=== PATIENT | male | born 1970 | race Caucasian/White ===

== ENCOUNTER 2019-12-26 15:35 | Inpatient (IN) | payer MEDICARE, MEDICAID ==
[~2019-12-26] VITALS: Ht 182.9 cm; Wt 122.5 kg
[2019-12-26] MEDS ORDERED: BENA25CA4 PO (16:15)
[2019-12-26] MEDS ORDERED: HALO20TA PO ×2 (16:17)
[2019-12-26] MEDS ORDERED: IBUP-1022 PO (16:17)
[2019-12-26] MEDS ORDERED: LEVO25TA5 PO (16:18)
[2019-12-26] MEDS ORDERED: AMBI10TA PO (16:19)
[2019-12-26] MEDS ORDERED: METF-882 PO (16:19)
[2019-12-26] MEDS: metFORMIN XR 500MG TAB *GLUCOPHAGE XR PO SCH (18:00)
[2019-12-26] MEDS ORDERED: MOM 30ML SUSPENSION UDC PO PRN (18:30)
[2019-12-26] MEDS ORDERED: MAALOX 30 ML SUSP *UDC PO PRN (18:30)
[2019-12-26] MEDS ORDERED: traZODone 50 MG TAB PO PRN (18:30)
[2019-12-26] MEDS ORDERED: ACETAMINOPHEN TAB 650MG DOSE (2X325MG) PO PRN (18:30)
[2019-12-26] MEDS ORDERED: LOSA25TA14 PO (18:50)
[2019-12-26] MEDS ORDERED: ARIP1TAB10 PO (18:50)
[2019-12-26] MEDS ORDERED: METF-838 PO (18:50)
[2019-12-26] MEDS ORDERED: PROP10TA56 PO (18:50)
[2019-12-26] MEDS ORDERED: ATOR1TAB21 PO (18:50)
[2019-12-26] MEDS ORDERED: DIPH50CA PO (18:50)
[2019-12-26 20:29] LABS: APPEARANCE, URINE CLEAR (CLEAR); BACTERIA, URINE AUTO NEGATIVE (NEGATIVE); BILIRUBIN, URINE AUTO NEGATIVE (NEGATIVE); BLOOD, URINE BLOOD 3+ (NEGATIVE); COLOR, URINE YELLOW (YELLOW); GLUCOSE, URINE (UA) AUTO NEGATIVE (NEGATIVE); KETONE, URINE AUTO NEGATIVE (NEGATIVE); LEUKOCYTE ESTERASE, URINE AUTO NEGATIVE (NEGATIVE); MUCUS, URINE SMALL (NEGATIVE); NITRITE, URINE AUTO NEGATIVE (NEGATIVE); PROTEIN, URINE AUTO NEGATIVE (NEGATIVE); RBC, URINE AUTO 11 /HPF (0-3); SQUAMOUS EPITHELIAL CELL UR AU 0 /HPF (0-6); UROBILINOGEN, URINE AUTO 0.2 mg/dL (0.0-2.0); WBC, URINE AUTO 1 /HPF (0-3)
[2019-12-26] MEDS: ARIPiprazole 15 MG TAB (AbiLIFY) PO SCH (21:00)
[2019-12-26] MEDS: PROPRANOLOL 10 MG TAB PO SCH (21:00)
[2019-12-26 22:59] VITALS: BP 142/78
[2019-12-27] MEDS: LEVOTHYROXINE 25MCG TABLET (0.025MG) PO SCH (06:24)
[2019-12-27 06:40] VITALS: BP 138/88
[2019-12-27] MEDS: metFORMIN XR 500MG TAB *GLUCOPHAGE XR PO SCH ×2 (07:04→17:03)
[2019-12-27] MEDS: IBUPROFEN 600MG TAB PO PRN (07:34)
[2019-12-27] MEDS: ARIPiprazole 15 MG TAB (AbiLIFY) PO SCH ×2 (09:46→22:07)
[2019-12-27] MEDS: LOSARTAN 25 MG TAB PO SCH (09:51)
[2019-12-27] MEDS: ATORVASTATIN 20 MG TAB PO SCH (09:52)
[2019-12-27] MEDS: PROPRANOLOL 10 MG TAB PO SCH ×3 (09:52→22:08)
[2019-12-27 16:17] VITALS: BP 148/98
--- NOTE | 2019-12-27 20:09 | HPEPDOC ---
[facility] Medical History & Physical Date of Admission Dec 27, 2019 Date of Service: Dec 27, 2019 Primary Care Physician: A Attending Physician: MYRIAM CANTU MD History and Physical CHIEF COMPLAINT: Medical intake admission by hospitalist service. C/o recent L inguinal pain which has since resolved. HISTORY OF PRESENT ILLNESS: 49 yo with a hx of HTN, hypothyroidism, DM2, admitted to [facility]. Hospitalist service consulted for medical intake. PAST MEDICAL HISTORY: 1. HTN 2. DM2 3. Hypothyroidism 4. Schizophrenia PAST SURGICAL HISTORY: Non contibutory SOCIAL HISTORY: denies smoking, eto use FAMILY HISTORY: denies ALLERGIES: Please see below. REVIEW OF SYSTEMS: CONSTITUTIONAL: na. HEENT: na. CARDIOVASCULAR: na. RESPIRATORY: na. GASTROINTESTINAL: na. GENITOURINARY: na. C/o L inguinal pain which has resolved. SKIN: na. MUSCULOSKELETAL: na. NEUROLOGICAL: na. PSYCHIATRIC: na. ENDOCRINE: na. HEMATOLOGIC/LYMPHATIC: na. HOME MEDICATIONS: Please see below. PHYSICAL EXAMINATION: VITAL SIGNS: please see below GENERAL APPEARANCE: NAD, comfortable standing. HEENT: PERRLA. CARDIOVASCULAR: RRR, normal S1, S2. LUNGS: CTAB. ABDOMEN: obese abdomen, BS+, no pain to palpation. L inguinal area shows no swelling or masses on bearing down. No overlying skin changes. MUSCULOSKELETAL: normal ROM. EXTREMITIES: no edema. NEUROLOGICAL: no focal neuro deficits. PSYCHIATRIC: calm, cooperative. MICROBIOLOGY: Please see below. ASSESSMENT: 49 yo with a hx of HTN, hypothyroidism, DM2, admitted to [facility]. Hospitalist service consulted for medical intake. PLAN: 1. L inguinal pain: resolved. No hernia, MSK issues identified. Monitor 2. Hematuria on UA (12/25). Denies hx of trauma. Repeat UA. Outpatient urology follow up recommended for cystoscopy if hematuria persists. 3. HTN: c/w home meds losartan 25 mg daily, propranolol 10 mg TID 4. hypothyroid: c/w home meds 25 mcg daily 5. constipation: bowel regimen 6. DM2: metformin. OK to continue if IV contrast imaging not planned. 7. Schizophrenia: per psychiatry Thank you for the consult. Please re-consult as needed. Vital Signs Vital Signs Date Time Temp Pulse Resp B/P (MAP) Pulse Ox O2 Delivery O2 Flow Rate FiO2 12/27/19 16:17 97.1 68 20 148/98 (115) 12/27/19 07:43 Room Air 12/26/19 22:59 95 Laboratory Data Labs 24H Laboratory Tests 2 12/26/19 20:04: Urine Color YELLOW, Urine Appearance CLEAR, Urine pH 6.0, Urine Specific [place] 1.010, Urine Protein NEGATIVE, Urine Glucose (Auto)(UA) NEGATIVE, Urine Ketones (Auto) NEGATIVE, Urine Blood 3+H, Urine Nitrite NEGATIVE, Urine Bilirubin NEGATIVE, Urine Urobilinogen 0.2, Urine Leukocyte Esterase (Auto) NEGATIVE, Urine WBC (Auto) 1, Urine RBC (Auto) 11H, Urine Hyaline Casts (Auto) 0, Urine Bacteria (Auto) NEGATIVE, Urine Squamous Epithelial Cells 0, Urine Mucus (Auto) SMALL, Urine Sperm (Auto) Home Medications Scheduled Aripiprazole (Aripiprazole) 15 Mg Tablet, 15 MG PO BID Atorvastatin Calcium (Atorvastatin Calcium) 20 Mg Tablet, 20 MG PO DAILY Haloperidol (Haloperidol) 20 Mg Tablet, 20 MG PO QHS Levothyroxine Sodium (Levothyroxine Sodium) 25 Mcg Tablet, 25 MCG PO DAILY Losartan Potassium (Losartan Potassium) 25 Mg Tablet, 25 MG PO DAILY Metformin HCl (Metformin HCl ER) 500 Mg Tab.er.24h, 500 MG PO BID Propranolol HCl (Propranolol HCl) 10 Mg Tablet, 10 MG PO TID Scheduled PRN Diphenhydramine HCl (Diphenhydramine HCl) 50 Mg Capsule, 50 MG PO TID PRN for ANXIETY/AGITATION Ibuprofen (Ibuprofen) 600 Mg Tablet, 1 MG PO TID PRN for PAIN Zolpidem Tartrate (Ambien) 10 Mg Tablet, 10 MG PO QHS PRN for sleep Allergies Coded Allergies: No Known Allergies (Unverified , 12/26/19) A-FIB/CHADSVASC A-FIB History Current/History of A-Fib/PAF?: No Current PO Anticoag Therapy: No MYRIAM CANTU MD Dec 27, 2019 20:08
[2019-12-27] MEDS: zolPIDEM TARTRATE 5 MG TAB PO PRN (22:06)
[2019-12-28] MEDS: LEVOTHYROXINE 25MCG TABLET (0.025MG) PO SCH (05:54)
[2019-12-28 06:38] VITALS: BP 133/64
[2019-12-28] MEDS: ATORVASTATIN 20 MG TAB PO SCH (09:34)
[2019-12-28] MEDS: ARIPiprazole 15 MG TAB (AbiLIFY) PO SCH ×2 (09:34→21:13)
[2019-12-28] MEDS: metFORMIN XR 500MG TAB *GLUCOPHAGE XR PO SCH ×2 (09:34→16:40)
[2019-12-28] MEDS: PROPRANOLOL 10 MG TAB PO SCH ×3 (09:35→21:24)
[2019-12-28] MEDS: LOSARTAN 25 MG TAB PO SCH (09:36)
--- NOTE | 2019-12-28 11:38 | MHIPNPDOC ---
[facility] Progress Note Progress Note DATE OF SERVICE: 12/28/19 Subjective HPI: Rachid presents today for a check-in. He states that he was brought in by the police and doesnt remember why or how he was brought in. He denies seeing anyone for mental health. Objective Appearance: Appears to be stated age. Poor hygeine. Thought Form: Nonlinear and tangential. Assessment F20.89 Other schizophrenia Plan Continue medications Attempt to contact outpatient once releases are obtained Vital Signs Vital Signs Date Time Temp Pulse Resp B/P (MAP) Pulse Ox O2 Delivery O2 Flow Rate FiO2 12/28/19 09:36 133/64 12/28/19 09:35 73 12/28/19 08:40 Room Air 12/28/19 06:38 98.4 14 95 Current Medications Current Medications Medications (Trade) Dose Ordered Sig/Vaishnavi Route PRN Reason Start Time Stop Time Status Last Admin Dose Admin Acetaminophen (Tylenol Tab) 650 mg Q6HP PRN PO HEADACHE or DISCOMFORT 12/26/19 18:30 Cancel Al Hydrox/Mg Hydrox/Simethicone (Mylanta) 30 ml Q4HP PRN PO HEARTBURN/INDIGESTION 12/26/19 18:30 Aripiprazole (AbiLIFY) 15 mg BID PO 12/26/19 21:00 12/28/19 09:34 Atorvastatin Calcium (Lipitor) 20 mg DAILY PO 12/27/19 09:00 12/28/19 09:34 Diphenhydramine HCl (Benadryl) 50 mg TID PRN PO ANXIETY/AGITATION 12/26/19 20:00 Haloperidol (Haldol) 20 mg QHS PO 12/26/19 21:00 12/27/19 22:07 Home Med (Med Rec Complete!) ASDIRECTED XX 12/26/19 19:00 12/26/19 18:55 DC Ibuprofen (Advil) 600 mg TID PRN PO PAIN 12/26/19 20:00 12/27/19 07:34 Levothyroxine Sodium (Synthroid) 25 mcg DAILY@0600 PO 12/27/19 06:00 12/28/19 05:54 Losartan Potassium (Cozaar) 25 mg DAILY PO 12/27/19 09:00 12/28/19 09:36 Magnesium Hydroxide (Milk Of Magnesia) 30 ml DAILYPRN PRN PO CONSTIPATION 12/26/19 18:30 Metformin HCl (Glucophage Xr) 500 mg BID@0800,1800 PO 12/26/19 18:00 12/28/19 09:34 Propranolol HCl (Inderal) 10 mg TID PO 12/26/19 21:00 12/28/19 09:35 Trazodone HCl (Desyrel) 50 mg QHSP PRN PO INSOMNIA 12/26/19 18:30 Cancel Zolpidem Tartrate (Ambien) 10 mg QHSP PRN PO Insomnia 12/26/19 20:00 12/27/19 22:06 Allergies Coded Allergies: No Known Allergies (Unverified , 12/26/19) OM KEYES DO Dec 28, 2019 11:38
[2019-12-28 17:33] VITALS: BP 156/88
[2019-12-28] MEDS: zolPIDEM TARTRATE 5 MG TAB PO PRN (21:13)
[2019-12-29] MEDS: LEVOTHYROXINE 25MCG TABLET (0.025MG) PO SCH (06:03)
[2019-12-29 06:11] VITALS: BP 136/73
--- NOTE | 2019-12-29 07:59 | MHIPNPDOC ---
[facility] Progress Note Progress Note DATE OF SERVICE: 12/29/19 Subjective HPI: Attempted to meet with patient today. He would only meet in the hallway. However, he stares blankly and was open to signing a release. However important that he wasnt yelling last night and otherwise would not answer questions. Objective Appearance: Poor hygiene. Cognition: Psychotic. Thought Form: Non-linear. Thought blocking present. Judgement: Poor. Insight: Poor. 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 Attempt to get release and speak to Dr. Fairchild to understand patients baseline. Vital Signs Vital Signs Date Time Temp Pulse Resp B/P (MAP) Pulse Ox O2 Delivery O2 Flow Rate FiO2 12/29/19 06:11 98.3 70 14 136/73 (94) 95 Room Air Current Medications Current Medications Medications (Trade) Dose Ordered Sig/Vaishnavi Route PRN Reason Start Time Stop Time Status Last Admin Dose Admin Acetaminophen (Tylenol Tab) 650 mg Q6HP PRN PO HEADACHE or DISCOMFORT 12/26/19 18:30 Cancel Al Hydrox/Mg Hydrox/Simethicone (Mylanta) 30 ml Q4HP PRN PO HEARTBURN/INDIGESTION 12/26/19 18:30 Aripiprazole (AbiLIFY) 15 mg BID PO 12/26/19 21:00 12/28/19 21:13 Atorvastatin Calcium (Lipitor) 20 mg DAILY PO 12/27/19 09:00 12/28/19 09:34 Diphenhydramine HCl (Benadryl) 50 mg TID PRN PO ANXIETY/AGITATION 12/26/19 20:00 Haloperidol (Haldol) 20 mg QHS PO 12/26/19 21:00 12/28/19 21:13 Home Med (Med Rec Complete!) ASDIRECTED XX 12/26/19 19:00 12/26/19 18:55 DC Ibuprofen (Advil) 600 mg TID PRN PO PAIN 12/26/19 20:00 12/27/19 07:34 Levothyroxine Sodium (Synthroid) 25 mcg DAILY@0600 PO 12/27/19 06:00 12/29/19 06:03 Losartan Potassium (Cozaar) 25 mg DAILY PO 12/27/19 09:00 12/28/19 09:36 Magnesium Hydroxide (Milk Of Magnesia) 30 ml DAILYPRN PRN PO CONSTIPATION 12/26/19 18:30 Metformin HCl (Glucophage Xr) 500 mg BID@0800,1800 PO 12/26/19 18:00 12/28/19 16:40 Propranolol HCl (Inderal) 10 mg TID PO 12/26/19 21:00 12/28/19 21:24 Trazodone HCl (Desyrel) 50 mg QHSP PRN PO INSOMNIA 12/26/19 18:30 Cancel Zolpidem Tartrate (Ambien) 10 mg QHSP PRN PO Insomnia 12/26/19 20:00 12/28/19 21:13 Allergies Coded Allergies: No Known Allergies (Unverified , 12/26/19) MO KEYES DO Dec 29, 2019 07:59
[2019-12-29] MEDS: metFORMIN XR 500MG TAB *GLUCOPHAGE XR PO SCH ×2 (09:21→18:23)
[2019-12-29] MEDS: PROPRANOLOL 10 MG TAB PO SCH ×3 (09:23→21:51)
[2019-12-29] MEDS: ARIPiprazole 15 MG TAB (AbiLIFY) PO SCH ×2 (09:24→21:49)
[2019-12-29] MEDS: LOSARTAN 25 MG TAB PO SCH (09:24)
[2019-12-29] MEDS: ATORVASTATIN 20 MG TAB PO SCH (09:24)
[2019-12-29 17:12] VITALS: BP 132/76
[2019-12-29] MEDS: zolPIDEM TARTRATE 5 MG TAB PO PRN (21:49)
[2019-12-30 06:31] VITALS: BP 160/81
[2019-12-30] MEDS: LEVOTHYROXINE 25MCG TABLET (0.025MG) PO SCH (06:52)
[2019-12-30 09:46] VITALS: BP 138/74
[2019-12-30] MEDS: ATORVASTATIN 20 MG TAB PO SCH (09:48)
[2019-12-30] MEDS: LOSARTAN 25 MG TAB PO SCH (09:48)
[2019-12-30] MEDS: PROPRANOLOL 10 MG TAB PO SCH ×3 (09:48→21:09)
[2019-12-30] MEDS: metFORMIN XR 500MG TAB *GLUCOPHAGE XR PO SCH ×2 (09:48→17:26)
[2019-12-30] MEDS: ARIPiprazole 15 MG TAB (AbiLIFY) PO SCH ×2 (09:48→20:54)
--- NOTE | 2019-12-30 11:46 | MHIPNPDOC ---
[facility] Progress Note Progress Note DATE OF SERVICE: 12/30/19 Subjective HPI: Rachid presents and was met with today after hospitalization. He is still quite distorted and psychotic, and sits in his chair refusing to meet with me in any more private setting. The patient is still tangential, however, the block and case maker reports that they will be open to transferring him bed to bed a new group house. Objective Appearance: Poor. Behavior: Talking to himself. Thought Form: Nonlinear. Tangential. Psychotic. Judgement: Poor. Insight: Poor. Assessment F29 Unspecified psychosis not due to a substance or known physiological condition Plan We will attempt to coordinate paperwork for potential bed to bed transfer to a new group house. We will continue current medications at this time. Vital Signs Vital Signs Date Time Temp Pulse Resp B/P (MAP) Pulse Ox O2 Delivery O2 Flow Rate FiO2 12/30/19 09:48 82 138/74 12/30/19 09:46 16 12/30/19 06:31 98.3 91 Room Air Current Medications Current Medications Medications (Trade) Dose Ordered Sig/Vaishnavi Route PRN Reason Start Time Stop Time Status Last Admin Dose Admin Acetaminophen (Tylenol Tab) 650 mg Q6HP PRN PO HEADACHE or DISCOMFORT 12/26/19 18:30 Cancel Al Hydrox/Mg Hydrox/Simethicone (Mylanta) 30 ml Q4HP PRN PO HEARTBURN/INDIGESTION 12/26/19 18:30 Aripiprazole (AbiLIFY) 15 mg BID PO 12/26/19 21:00 12/30/19 09:48 Atorvastatin Calcium (Lipitor) 20 mg DAILY PO 12/27/19 09:00 12/30/19 09:48 Diphenhydramine HCl (Benadryl) 50 mg TID PRN PO ANXIETY/AGITATION 12/26/19 20:00 Haloperidol (Haldol) 20 mg QHS PO 12/26/19 21:00 12/29/19 21:49 Home Med (Med Rec Complete!) ASDIRECTED XX 12/26/19 19:00 12/26/19 18:55 DC Ibuprofen (Advil) 600 mg TID PRN PO PAIN 12/26/19 20:00 12/27/19 07:34 Levothyroxine Sodium (Synthroid) 25 mcg DAILY@0600 PO 12/27/19 06:00 12/30/19 06:52 Losartan Potassium (Cozaar) 25 mg DAILY PO 12/27/19 09:00 12/30/19 09:48 Magnesium Hydroxide (Milk Of Magnesia) 30 ml DAILYPRN PRN PO CONSTIPATION 12/26/19 18:30 Metformin HCl (Glucophage Xr) 500 mg BID@0800,1800 PO 12/26/19 18:00 12/30/19 09:48 Propranolol HCl (Inderal) 10 mg TID PO 12/26/19 21:00 12/30/19 09:48 Trazodone HCl (Desyrel) 50 mg QHSP PRN PO INSOMNIA 12/26/19 18:30 Cancel Zolpidem Tartrate (Ambien) 10 mg QHSP PRN PO Insomnia 12/26/19 20:00 12/29/19 21:49 Allergies Coded Allergies: No Known Allergies (Unverified , 12/26/19) MO KEYES DO Dec 30, 2019 11:46
[2019-12-30 16:03] VITALS: BP 174/90
[2019-12-30] MEDS: zolPIDEM TARTRATE 5 MG TAB PO PRN (21:09)
[2019-12-31 05:51] VITALS: BP 132/73
[2019-12-31] MEDS: LEVOTHYROXINE 25MCG TABLET (0.025MG) PO SCH (05:57)
--- NOTE | 2019-12-31 07:36 | MHIPNPDOC ---
[facility] Progress Note Progress Note DATE OF SERVICE: 12/31/19 Subjective HPI: Rachid attempted to be met with today. He is still quite distorted and was talking to himself in his room, apparently quite internally preoccupied. He stated no violence or other issues overnight. Objective Thought Form: Nonlinear. Talking to himself. Highly internally preoccupied. Judgement: Poor. Insight: Poor. 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 It appears that the Patient is psychotic at baseline. Will attempt to contact outpatient provider to get more insight. However, likely [facility] be more helpful. His complex medication regimen will be continued. I am very ambivalent about changing it at this time as it is likely that decompensation could be provoked. Vital Signs Vital Signs Date Time Temp Pulse Resp B/P (MAP) Pulse Ox O2 Delivery O2 Flow Rate FiO2 12/31/19 05:51 98.3 65 18 132/73 (92) Room Air 12/30/19 16:03 96 Current Medications Current Medications Medications (Trade) Dose Ordered Sig/Vaishnavi Route PRN Reason Start Time Stop Time Status Last Admin Dose Admin Acetaminophen (Tylenol Tab) 650 mg Q6HP PRN PO HEADACHE or DISCOMFORT 12/26/19 18:30 Cancel Al Hydrox/Mg Hydrox/Simethicone (Mylanta) 30 ml Q4HP PRN PO HEARTBURN/INDIGESTION 12/26/19 18:30 Aripiprazole (AbiLIFY) 15 mg BID PO 12/26/19 21:00 12/30/19 20:54 Atorvastatin Calcium (Lipitor) 20 mg DAILY PO 12/27/19 09:00 12/30/19 09:48 Diphenhydramine HCl (Benadryl) 50 mg TID PRN PO ANXIETY/AGITATION 12/26/19 20:00 Haloperidol (Haldol) 20 mg QHS PO 12/26/19 21:00 12/30/19 21:08 Home Med (Med Rec Complete!) ASDIRECTED XX 12/26/19 19:00 12/26/19 18:55 DC Ibuprofen (Advil) 600 mg TID PRN PO PAIN 12/26/19 20:00 12/27/19 07:34 Levothyroxine Sodium (Synthroid) 25 mcg DAILY@0600 PO 12/27/19 06:00 12/31/19 05:57 Losartan Potassium (Cozaar) 25 mg DAILY PO 12/27/19 09:00 12/30/19 09:48 Magnesium Hydroxide (Milk Of Magnesia) 30 ml DAILYPRN PRN PO CONSTIPATION 12/26/19 18:30 Metformin HCl (Glucophage Xr) 500 mg BID@0800,1800 PO 12/26/19 18:00 12/30/19 17:26 Propranolol HCl (Inderal) 10 mg TID PO 12/26/19 21:00 12/30/19 21:09 Trazodone HCl (Desyrel) 50 mg QHSP PRN PO INSOMNIA 12/26/19 18:30 Cancel Zolpidem Tartrate (Ambien) 10 mg QHSP PRN PO Insomnia 12/26/19 20:00 12/30/19 21:09 Allergies Coded Allergies: No Known Allergies (Unverified , 12/26/19) MO KEYES DO Dec 31, 2019 07:36
[2019-12-31] MEDS: LOSARTAN 25 MG TAB PO SCH (08:07)
[2019-12-31] MEDS: metFORMIN XR 500MG TAB *GLUCOPHAGE XR PO SCH ×2 (08:07→17:00)
[2019-12-31] MEDS: ATORVASTATIN 20 MG TAB PO SCH (08:08)
[2019-12-31] MEDS: PROPRANOLOL 10 MG TAB PO SCH ×3 (08:09→19:59)
[2019-12-31] MEDS: ARIPiprazole 15 MG TAB (AbiLIFY) PO SCH ×2 (08:10→19:59)
[2019-12-31 17:17] VITALS: BP 142/78
[2019-12-31] MEDS: zolPIDEM TARTRATE 5 MG TAB PO PRN (19:58)
[2020-01-01] MEDS: diphenhydrAMINE 50MG CAP PO PRN (02:55)
[2020-01-01] MEDS: LEVOTHYROXINE 25MCG TABLET (0.025MG) PO SCH (05:46)
[2020-01-01 06:20] VITALS: BP 138/77
--- NOTE | 2020-01-01 08:18 | MHIPNPDOC ---
[facility] Progress Note Progress Note DATE OF SERVICE: 01/01/20 Subjective HPI: Patient presents today for follow-up, and attempted to be met today. However, he is still quite distorted, unable to reason, and attempted to discuss with patient about potential group house placement, but patient is unable to engage in a reasonable interview. Objective Appearance: Poor hygiene. Thought Form: Nonlinear. Psychotic. Thought blocking present. Judgement: Poor. Insight: Poor. Assessment F20.89 Other schizophrenia Plan Continue with pursuing group house placement. Continue medications as is, with no changes. Vital Signs Vital Signs Date Time Temp Pulse Resp B/P (MAP) Pulse Ox O2 Delivery O2 Flow Rate FiO2 01/01/20 06:20 98.6 75 18 138/77 (97) 94 Room Air Current Medications Current Medications Medications (Trade) Dose Ordered Sig/Vaishnavi Route PRN Reason Start Time Stop Time Status Last Admin Dose Admin Acetaminophen (Tylenol Tab) 650 mg Q6HP PRN PO HEADACHE or DISCOMFORT 12/26/19 18:30 Cancel Al Hydrox/Mg Hydrox/Simethicone (Mylanta) 30 ml Q4HP PRN PO HEARTBURN/INDIGESTION 12/26/19 18:30 Aripiprazole (AbiLIFY) 15 mg BID PO 12/26/19 21:00 12/31/19 19:59 Atorvastatin Calcium (Lipitor) 20 mg DAILY PO 12/27/19 09:00 12/31/19 08:08 Diphenhydramine HCl (Benadryl) 50 mg TID PRN PO ANXIETY/AGITATION 12/26/19 20:00 01/01/20 02:55 Haloperidol (Haldol) 20 mg QHS PO 12/26/19 21:00 12/31/19 20:00 Home Med (Med Rec Complete!) ASDIRECTED XX 12/26/19 19:00 12/26/19 18:55 DC Ibuprofen (Advil) 600 mg TID PRN PO PAIN 12/26/19 20:00 12/27/19 07:34 Levothyroxine Sodium (Synthroid) 25 mcg DAILY@0600 PO 12/27/19 06:00 01/01/20 05:46 Losartan Potassium (Cozaar) 25 mg DAILY PO 12/27/19 09:00 12/31/19 08:07 Magnesium Hydroxide (Milk Of Magnesia) 30 ml DAILYPRN PRN PO CONSTIPATION 12/26/19 18:30 Metformin HCl (Glucophage Xr) 500 mg BID@0800,1800 PO 12/26/19 18:00 12/31/19 17:00 Propranolol HCl (Inderal) 10 mg TID PO 12/26/19 21:00 12/31/19 19:59 Trazodone HCl (Desyrel) 50 mg QHSP PRN PO INSOMNIA 12/26/19 18:30 Cancel Zolpidem Tartrate (Ambien) 10 mg QHSP PRN PO Insomnia 12/26/19 20:00 12/31/19 19:58 Allergies Coded Allergies: No Known Allergies (Unverified , 12/26/19) MO KEYES DO Jan 01, 2020 08:18
[2020-01-01] MEDS: metFORMIN XR 500MG TAB *GLUCOPHAGE XR PO SCH ×2 (09:27→17:08)
[2020-01-01] MEDS: ATORVASTATIN 20 MG TAB PO SCH (09:28)
[2020-01-01] MEDS: PROPRANOLOL 10 MG TAB PO SCH ×3 (09:28→20:53)
[2020-01-01] MEDS: ARIPiprazole 15 MG TAB (AbiLIFY) PO SCH ×2 (09:29→20:52)
[2020-01-01] MEDS: LOSARTAN 25 MG TAB PO SCH (09:29)
[2020-01-01 16:54] VITALS: BP 176/92
[2020-01-01] MEDS: zolPIDEM TARTRATE 5 MG TAB PO PRN (20:51)
[2020-01-02] MEDS: LEVOTHYROXINE 25MCG TABLET (0.025MG) PO SCH (05:56)
[2020-01-02] MEDS: PROPRANOLOL 10 MG TAB PO SCH ×3 (08:08→21:48)
[2020-01-02] MEDS: metFORMIN XR 500MG TAB *GLUCOPHAGE XR PO SCH ×2 (08:08→17:00)
[2020-01-02] MEDS: ATORVASTATIN 20 MG TAB PO SCH (08:09)
[2020-01-02] MEDS: LOSARTAN 25 MG TAB PO SCH (08:09)
[2020-01-02] MEDS: ARIPiprazole 15 MG TAB (AbiLIFY) PO SCH ×2 (08:09→21:48)
[2020-01-02 14:00] VITALS: BP 124/90
[2020-01-02] MEDS: diphenhydrAMINE 50MG CAP PO PRN (21:50)
[2020-01-03] MEDS: LEVOTHYROXINE 25MCG TABLET (0.025MG) PO SCH (06:10)
[2020-01-03 06:31] VITALS: BP 110/65
[2020-01-03] MEDS: metFORMIN XR 500MG TAB *GLUCOPHAGE XR PO SCH ×2 (08:21→16:48)
[2020-01-03] MEDS: ARIPiprazole 15 MG TAB (AbiLIFY) PO SCH ×2 (08:21→21:31)
[2020-01-03] MEDS: LOSARTAN 25 MG TAB PO SCH (08:21)
[2020-01-03] MEDS: PROPRANOLOL 10 MG TAB PO SCH ×3 (08:22→21:32)
[2020-01-03] MEDS: ATORVASTATIN 20 MG TAB PO SCH (08:22)
[2020-01-03 18:25] VITALS: BP 156/76
[2020-01-04] MEDS: LEVOTHYROXINE 25MCG TABLET (0.025MG) PO SCH (06:11)
[2020-01-04 06:24] VITALS: BP 138/68
--- NOTE | 2020-01-04 07:42 | MHIPNPDOC ---
[facility] Progress Note Progress Note Subjective HPI: Rachid is met with today and is still distorted and psychotic without any further insight. Patient is foundling in his bedroom. He is giving minimal answers. Objective Appearance: Poor hygiene. Speech: Minimal speech. Thought Form: Thought process is tangential. Tangential thought process. Judgement: Poor judgement. Insight: Poor insight. Assessment F20.9 Schizophrenia, unspecified Plan Continue patients current medications. Continue to pursue the group house option as it appears that this would be the safest discharge for him. Still concerned about changing medications too quickly as this could participate a relapse. Vital Signs Vital Signs Date Time Temp Pulse Resp B/P (MAP) Pulse Ox O2 Delivery O2 Flow Rate FiO2 01/04/20 06:24 99.0 88 18 138/68 (91) 01/03/20 18:25 95 Room Air Current Medications Current Medications Medications (Trade) Dose Ordered Sig/Vaishnavi Route PRN Reason Start Time Stop Time Status Last Admin Dose Admin Acetaminophen (Tylenol Tab) 650 mg Q6HP PRN PO HEADACHE or DISCOMFORT 12/26/19 18:30 Cancel Al Hydrox/Mg Hydrox/Simethicone (Mylanta) 30 ml Q4HP PRN PO HEARTBURN/INDIGESTION 12/26/19 18:30 Aripiprazole (AbiLIFY) 15 mg BID PO 12/26/19 21:00 01/03/20 21:31 Atorvastatin Calcium (Lipitor) 20 mg DAILY PO 12/27/19 09:00 01/03/20 08:22 Diphenhydramine HCl (Benadryl) 50 mg TID PRN PO ANXIETY/AGITATION 12/26/19 20:00 01/02/20 21:50 Haloperidol (Haldol) 20 mg QHS PO 12/26/19 21:00 01/03/20 21:32 Home Med (Med Rec Complete!) ASDIRECTED XX 12/26/19 19:00 12/26/19 18:55 DC Ibuprofen (Advil) 600 mg TID PRN PO PAIN 12/26/19 20:00 12/27/19 07:34 Levothyroxine Sodium (Synthroid) 25 mcg DAILY@0600 PO 12/27/19 06:00 01/04/20 06:11 Losartan Potassium (Cozaar) 25 mg DAILY PO 12/27/19 09:00 01/03/20 08:21 Magnesium Hydroxide (Milk Of Magnesia) 30 ml DAILYPRN PRN PO CONSTIPATION 12/26/19 18:30 Metformin HCl (Glucophage Xr) 500 mg BID@0800,1800 PO 12/26/19 18:00 01/03/20 16:48 Propranolol HCl (Inderal) 10 mg TID PO 12/26/19 21:00 01/03/20 21:32 Trazodone HCl (Desyrel) 50 mg QHSP PRN PO INSOMNIA 12/26/19 18:30 Cancel Zolpidem Tartrate (Ambien) 10 mg QHSP PRN PO Insomnia 12/26/19 20:00 01/02/20 19:59 DC 01/01/20 20:51 Allergies Coded Allergies: No Known Allergies (Unverified , 12/26/19) MO KEYES DO Jan 04, 2020 07:42
[2020-01-04] MEDS: ARIPiprazole 15 MG TAB (AbiLIFY) PO SCH ×2 (09:10→21:12)
[2020-01-04] MEDS: PROPRANOLOL 10 MG TAB PO SCH ×3 (09:10→21:13)
[2020-01-04] MEDS: metFORMIN XR 500MG TAB *GLUCOPHAGE XR PO SCH ×2 (09:10→17:12)
[2020-01-04] MEDS: LOSARTAN 25 MG TAB PO SCH (09:10)
[2020-01-04] MEDS: ATORVASTATIN 20 MG TAB PO SCH (09:10)
[2020-01-04 17:52] VITALS: BP 138/87
[2020-01-05] MEDS: diphenhydrAMINE 50MG CAP PO PRN ×2 (00:18→20:41)
[2020-01-05] MEDS: LEVOTHYROXINE 25MCG TABLET (0.025MG) PO SCH (05:51)
[2020-01-05 06:25] VITALS: BP 126/82
[2020-01-05] MEDS: ATORVASTATIN 20 MG TAB PO SCH (08:49)
[2020-01-05] MEDS: LOSARTAN 25 MG TAB PO SCH (08:49)
[2020-01-05] MEDS: ARIPiprazole 15 MG TAB (AbiLIFY) PO SCH ×2 (08:49→20:40)
[2020-01-05] MEDS: metFORMIN XR 500MG TAB *GLUCOPHAGE XR PO SCH ×2 (08:50→17:50)
[2020-01-05] MEDS: PROPRANOLOL 10 MG TAB PO SCH ×3 (08:50→20:41)
[2020-01-05] MEDS ORDERED: **PENDING PPD ENTRY XX SCH (09:00)
--- NOTE | 2020-01-05 11:00 | MHIPNPDOC ---
[facility] Progress Note Progress Note DATE OF SERVICE: 01/05/20 Subjective HPI: Rachid is met with today and is still distorted and psychotic without any further insight. Patient is laying in his bedroom. He has had no agiation but is noted to talk to self at times. Objective Appearance: Poor hygiene. Speech: Minimal speech. Thought Form: Thought process is tangential. Tangential thought process. Judgement: Poor judgement. Insight: Poor insight. Assessment F20.9 Schizophrenia, unspecified Plan Continue patients current medications. Continue to pursue the group house option as it appears that this would be the safest discharge for him. Still concerned about changing medications too quickly as this could participate a relapse. Vital Signs Vital Signs Date Time Temp Pulse Resp B/P (MAP) Pulse Ox O2 Delivery O2 Flow Rate FiO2 01/05/20 08:49 126/82 01/05/20 06:25 97.4 66 18 01/03/20 18:25 95 Room Air Current Medications Current Medications Medications (Trade) Dose Ordered Sig/Vaishnavi Route PRN Reason Start Time Stop Time Status Last Admin Dose Admin Acetaminophen (Tylenol Tab) 650 mg Q6HP PRN PO HEADACHE or DISCOMFORT 12/26/19 18:30 Cancel Al Hydrox/Mg Hydrox/Simethicone (Mylanta) 30 ml Q4HP PRN PO HEARTBURN/INDIGESTION 12/26/19 18:30 Aripiprazole (AbiLIFY) 15 mg BID PO 12/26/19 21:00 01/05/20 08:49 Atorvastatin Calcium (Lipitor) 20 mg DAILY PO 12/27/19 09:00 01/05/20 08:49 Diphenhydramine HCl (Benadryl) 50 mg TID PRN PO ANXIETY/AGITATION 12/26/19 20:00 01/05/20 00:18 Haloperidol (Haldol) 20 mg QHS PO 12/26/19 21:00 01/04/20 21:12 Home Med (Med Rec Complete!) ASDIRECTED XX 12/26/19 19:00 12/26/19 18:55 DC Ibuprofen (Advil) 600 mg TID PRN PO PAIN 12/26/19 20:00 12/27/19 07:34 Levothyroxine Sodium (Synthroid) 25 mcg DAILY@0600 PO 12/27/19 06:00 01/05/20 05:51 Losartan Potassium (Cozaar) 25 mg DAILY PO 12/27/19 09:00 01/05/20 08:49 Magnesium Hydroxide (Milk Of Magnesia) 30 ml DAILYPRN PRN PO CONSTIPATION 12/26/19 18:30 Metformin HCl (Glucophage Xr) 500 mg BID@0800,1800 PO 12/26/19 18:00 01/05/20 08:50 Propranolol HCl (Inderal) 10 mg TID PO 12/26/19 21:00 01/05/20 08:50 Trazodone HCl (Desyrel) 50 mg QHSP PRN PO INSOMNIA 12/26/19 18:30 Cancel Zolpidem Tartrate (Ambien) 10 mg QHSP PRN PO Insomnia 12/26/19 20:00 01/02/20 19:59 DC 01/01/20 20:51 Allergies Coded Allergies: No Known Allergies (Unverified , 12/26/19) MO KEYES DO Jan 05, 2020 11:00
[2020-01-05] MEDS ORDERED: TUBERCULIN PPD 5 UNITS/0.1 ML ID ONE ×2 (12:30→15:00)
[2020-01-05 17:52] VITALS: BP 168/89
[2020-01-06] MEDS: diphenhydrAMINE 50MG CAP PO PRN ×2 (02:33→21:35)
[2020-01-06] MEDS: LEVOTHYROXINE 25MCG TABLET (0.025MG) PO SCH (05:03)
[2020-01-06 06:41] VITALS: BP 138/96
[2020-01-06] MEDS: ATORVASTATIN 20 MG TAB PO SCH (08:18)
[2020-01-06] MEDS: PROPRANOLOL 10 MG TAB PO SCH ×3 (08:18→21:36)
[2020-01-06] MEDS: ARIPiprazole 15 MG TAB (AbiLIFY) PO SCH ×2 (08:18→21:37)
[2020-01-06] MEDS: metFORMIN XR 500MG TAB *GLUCOPHAGE XR PO SCH ×2 (08:19→17:16)
[2020-01-06] MEDS: LOSARTAN 25 MG TAB PO SCH (08:19)
--- NOTE | 2020-01-06 08:52 | MHIPNPDOC ---
[facility] Progress Note Progress Note DATE OF SERVICE: 01/06/20 Subjective HPI: Rachid presents today for psychosis. Patient was met with today. However, he is still at what appears to be a baseline level of psychosis. He is noted to talk to himself from time to time. Patient has been up and out of bed, engaging at mealtimes. He denies any problems from his medications. Patient still states that he wants to go back to [facility] and is still not going to a intermediate. Objective Appearance: Appears to be stated age. Baseline hygiene. Well nourished. Thought Form: Mildly tangential, able to follow basic conversation. Thought Content: No evidence of suicidal ideation. No evidence of aggressive or homicidal ideation. No evidence of delusions. No thoughts of self harm. Judgement: Poor at baseline. Insight: Poor at baseline. Assessment F20.9 Schizophrenia, unspecified Plan Continue medications as current. Will explore the possibility of a intermediate. However, it does not appear that he would be able to be forced into this. Vital Signs Vital Signs Date Time Temp Pulse Resp B/P (MAP) Pulse Ox O2 Delivery O2 Flow Rate FiO2 01/06/20 08:19 138/96 01/06/20 08:18 70 01/06/20 06:41 97.8 18 Room Air 01/03/20 18:25 95 Laboratory Data 24H Labs Laboratory Tests 2 01/05/20 21:05: Coronavirus (COVID-19)(PCR) NEGATIVE Current Medications Current Medications Medications (Trade) Dose Ordered Sig/Vaishnavi Route PRN Reason Start Time Stop Time Status Last Admin Dose Admin Acetaminophen (Tylenol Tab) 650 mg Q6HP PRN PO HEADACHE or DISCOMFORT 12/26/19 18:30 Cancel Al Hydrox/Mg Hydrox/Simethicone (Mylanta) 30 ml Q4HP PRN PO HEARTBURN/INDIGESTION 12/26/19 18:30 Aripiprazole (AbiLIFY) 15 mg BID PO 12/26/19 21:00 01/06/20 08:18 Atorvastatin Calcium (Lipitor) 20 mg DAILY PO 12/27/19 09:00 01/06/20 08:18 Diphenhydramine HCl (Benadryl) 50 mg TID PRN PO ANXIETY/AGITATION 12/26/19 20:00 01/06/20 02:33 Haloperidol (Haldol) 20 mg QHS PO 12/26/19 21:00 01/05/20 20:41 Home Med (Med Rec Complete!) ASDIRECTED XX 12/26/19 19:00 12/26/19 18:55 DC Ibuprofen (Advil) 600 mg TID PRN PO PAIN 12/26/19 20:00 12/27/19 07:34 Levothyroxine Sodium (Synthroid) 25 mcg DAILY@0600 PO 12/27/19 06:00 01/06/20 05:03 Losartan Potassium (Cozaar) 25 mg DAILY PO 12/27/19 09:00 01/06/20 08:19 Magnesium Hydroxide (Milk Of Magnesia) 30 ml DAILYPRN PRN PO CONSTIPATION 12/26/19 18:30 Metformin HCl (Glucophage Xr) 500 mg BID@0800,1800 PO 12/26/19 18:00 01/06/20 08:19 Non-Formulary Medication ( See Comment Field Below ) SEE COMMENTS SECTION 1T@10 XX 01/07/20 10:00 01/05/20 12:33 DC Non-Formulary Medication ( See Comment Field Below ) SEE LABEL COMMENTS DAILY XX 01/05/20 09:00 01/05/20 13:42 DC Non-Formulary Medication ( See Comment Field Below ) SEE LABEL COMMENTS DAILY XX 01/06/20 09:00 Propranolol HCl (Inderal) 10 mg TID PO 12/26/19 21:00 01/06/20 08:18 Trazodone HCl (Desyrel) 50 mg QHSP PRN PO INSOMNIA 12/26/19 18:30 Cancel Zolpidem Tartrate (Ambien) 10 mg QHSP PRN PO Insomnia 12/26/19 20:00 01/02/20 19:59 DC 01/01/20 20:51 Allergies Coded Allergies: No Known Allergies (Unverified , 12/26/19) MO KEYES DO Jan 06, 2020 08:52
[2020-01-06] MEDS ORDERED: **PENDING PPD ENTRY XX SCH (09:00)
[2020-01-06 17:52] VITALS: BP 140/88
[2020-01-07] MEDS: diphenhydrAMINE 50MG CAP PO PRN (02:44)
[2020-01-07] MEDS: LEVOTHYROXINE 25MCG TABLET (0.025MG) PO SCH (06:03)
[2020-01-07 07:05] VITALS: BP 111/71
--- NOTE | 2020-01-07 08:10 | MHIPNPDOC ---
[facility] Progress Note Progress Note DATE OF SERVICE: 01/07/20 Subjective HPI: Rachid presents today for concerns regarding receiving a new bed and an update on his medication. He is requesting a new bed because it bends. MEDICATIONS: He says the medication is doing well for him. Objective Appearance: Hygiene is poor to fair, baseline. Speech: Sparse in production. Thought Form: Generally linear. Does not display any delusional thinking to me. Thought Content: Denies any suicidal or homicidal ideation. Judgement: Limited, likely baseline. Insight: Limited, likely baseline. Assessment F20.9 Schizophrenia, unspecified Plan Have patient return back to [facility] on Saturday. Will attempt to contact outpatient provider to get baseline, have her review the chart from [facility] which indicates that this is likely his baseline. He does not appear to be demonstrating any significant dangerousness to himself as he has been compliant with all medication directions and has no behavioral problems. Occasionally, he is known to be speaking to himself. However, this in itself does not appear to be able to justify keeping him against his will as per my opinion. The difficulty with caring for self is not seen on the unit as he appears to a ttend to his basic needs without need for much prompting. Vital Signs Vital Signs Date Time Temp Pulse Resp B/P (MAP) Pulse Ox O2 Delivery O2 Flow Rate FiO2 01/07/20 07:05 97.4 65 15 111/71 (84) 94 01/06/20 06:41 Room Air Current Medications Current Medications Medications (Trade) Dose Ordered Sig/Vaishnavi Route PRN Reason Start Time Stop Time Status Last Admin Dose Admin Acetaminophen (Tylenol Tab) 650 mg Q6HP PRN PO HEADACHE or DISCOMFORT 12/26/19 18:30 Cancel Al Hydrox/Mg Hydrox/Simethicone (Mylanta) 30 ml Q4HP PRN PO HEARTBURN/INDIGESTION 12/26/19 18:30 Aripiprazole (AbiLIFY) 15 mg BID PO 12/26/19 21:00 01/06/20 21:37 Atorvastatin Calcium (Lipitor) 20 mg DAILY PO 12/27/19 09:00 01/06/20 08:18 Diphenhydramine HCl (Benadryl) 50 mg TID PRN PO ANXIETY/AGITATION 12/26/19 20:00 01/07/20 02:44 Haloperidol (Haldol) 20 mg QHS PO 12/26/19 21:00 01/06/20 21:36 Home Med (Med Rec Complete!) ASDIRECTED XX 12/26/19 19:00 12/26/19 18:55 DC Ibuprofen (Advil) 600 mg TID PRN PO PAIN 12/26/19 20:00 12/27/19 07:34 Levothyroxine Sodium (Synthroid) 25 mcg DAILY@0600 PO 12/27/19 06:00 01/07/20 06:03 Losartan Potassium (Cozaar) 25 mg DAILY PO 12/27/19 09:00 01/06/20 08:19 Magnesium Hydroxide (Milk Of Magnesia) 30 ml DAILYPRN PRN PO CONSTIPATION 12/26/19 18:30 Metformin HCl (Glucophage Xr) 500 mg BID@0800,1800 PO 12/26/19 18:00 01/06/20 17:16 Non-Formulary Medication ( See Comment Field Below ) SEE COMMENTS SECTION 1T@10 XX 01/07/20 10:00 01/05/20 12:33 DC Non-Formulary Medication ( See Comment Field Below ) SEE LABEL COMMENTS DAILY XX 01/05/20 09:00 01/05/20 13:42 DC Non-Formulary Medication ( See Comment Field Below ) SEE LABEL COMMENTS DAILY XX 01/06/20 09:00 Propranolol HCl (Inderal) 10 mg TID PO 12/26/19 21:00 01/06/20 21:36 Trazodone HCl (Desyrel) 50 mg QHSP PRN PO INSOMNIA 12/26/19 18:30 Cancel Zolpidem Tartrate (Ambien) 10 mg QHSP PRN PO Insomnia 12/26/19 20:00 01/02/20 19:59 DC 01/01/20 20:51 Allergies Coded Allergies: No Known Allergies (Unverified , 12/26/19) MO KEYES DO Jan 07, 2020 08:10
[2020-01-07] MEDS: metFORMIN XR 500MG TAB *GLUCOPHAGE XR PO SCH ×2 (09:27→18:52)
[2020-01-07] MEDS: ATORVASTATIN 20 MG TAB PO SCH (09:27)
[2020-01-07] MEDS: LOSARTAN 25 MG TAB PO SCH (09:27)
[2020-01-07] MEDS: PROPRANOLOL 10 MG TAB PO SCH ×3 (09:28→21:41)
[2020-01-07] MEDS: ARIPiprazole 15 MG TAB (AbiLIFY) PO SCH ×2 (09:31→21:41)
[2020-01-07] MEDS ORDERED: PPD DOCUMENTATION ENTRY MISC XX SCH (10:00)
[2020-01-07] MEDS ORDERED: TUBERCULIN PPD 5 UNITS/0.1 ML ID ONE (10:45)
[2020-01-07] MEDS ORDERED: PPD DOCUMENTATION ENTRY MISC XX ONE (15:00)
[2020-01-07 16:44] VITALS: BP 117/68
[2020-01-08 06:22] VITALS: BP 163/86
[2020-01-08] MEDS: LEVOTHYROXINE 25MCG TABLET (0.025MG) PO SCH (06:23)
[2020-01-08] MEDS: ARIPiprazole 15 MG TAB (AbiLIFY) PO SCH ×2 (08:23→20:58)
[2020-01-08] MEDS: LOSARTAN 25 MG TAB PO SCH (08:24)
[2020-01-08] MEDS: ATORVASTATIN 20 MG TAB PO SCH (08:24)
[2020-01-08] MEDS: PROPRANOLOL 10 MG TAB PO SCH ×3 (08:25→20:57)
[2020-01-08] MEDS: metFORMIN XR 500MG TAB *GLUCOPHAGE XR PO SCH ×2 (08:25→17:17)
--- NOTE | 2020-01-08 09:52 | MHIPNPDOC ---
[facility] Progress Note Progress Note DATE OF SERVICE: 01/08/20 Subjective HPI: The patient is met with today. He reports that he still wants to return to [facility]. Of note, the only unusual thing he mentioned was that he said he Works for a [employer] but had a fairly flat affect and did not perseverate too much on this. He appears to be taking care of himself and staff reports that hes been doing generally well without any major problems. He is noted to talk to himself at times, however, this appears to be in the privacy of his room. When asked, he states that he is discussing with himself, however, he does not appear to be internally preoccupied when meeting. Objective Appearance: Fair hygiene. Speech: Normal rate. Normal volume. Spontaneous and Fluid. Cognition: Baseline. Thought Form: Linear and goal directed. Thought Content: No evidence of aggressive or homicidal ideation. No evidence of suicidal ideation. No evidence of delusions. No thoughts of self harm. Judgement: Likely baseline. Poor to fair. Insight: Poor to fair. Likely baseline. Assessment F20.9 Schizophrenia, unspecified Plan Plan is to continue home medications, will likely send home on Saturday. Unable to get ahold of provider as one reviewed records from [facility], it appears that he is not even met with this new provider Dr. Fairchild, and he is currently in between providers at this time at [facility] as he sees a resident provider who has since graduated. Vital Signs Vital Signs Date Time Temp Pulse Resp B/P (MAP) Pulse Ox O2 Delivery O2 Flow Rate FiO2 01/08/20 08:25 55 163/86 01/08/20 06:22 97.5 16 100 Room Air Current Medications Current Medications Medications (Trade) Dose Ordered Sig/Vaishnavi Route PRN Reason Start Time Stop Time Status Last Admin Dose Admin Acetaminophen (Tylenol Tab) 650 mg Q6HP PRN PO HEADACHE or DISCOMFORT 12/26/19 18:30 Cancel Al Hydrox/Mg Hydrox/Simethicone (Mylanta) 30 ml Q4HP PRN PO HEARTBURN/INDIGESTION 12/26/19 18:30 Aripiprazole (AbiLIFY) 15 mg BID PO 12/26/19 21:00 01/08/20 08:23 Atorvastatin Calcium (Lipitor) 20 mg DAILY PO 12/27/19 09:00 01/08/20 08:24 Diphenhydramine HCl (Benadryl) 50 mg TID PRN PO ANXIETY/AGITATION 12/26/19 20:00 01/07/20 02:44 Haloperidol (Haldol) 20 mg QHS PO 12/26/19 21:00 01/07/20 21:40 Home Med (Med Rec Complete!) ASDIRECTED XX 12/26/19 19:00 12/26/19 18:55 DC Ibuprofen (Advil) 600 mg TID PRN PO PAIN 12/26/19 20:00 12/27/19 07:34 Levothyroxine Sodium (Synthroid) 25 mcg DAILY@0600 PO 12/27/19 06:00 01/08/20 06:23 Losartan Potassium (Cozaar) 25 mg DAILY PO 12/27/19 09:00 01/08/20 08:24 Magnesium Hydroxide (Milk Of Magnesia) 30 ml DAILYPRN PRN PO CONSTIPATION 12/26/19 18:30 Metformin HCl (Glucophage Xr) 500 mg BID@0800,1800 PO 12/26/19 18:00 01/08/20 08:25 Non-Formulary Medication ( See Comment Field Below ) SEE COMMENTS SECTION 1T@10 XX 01/07/20 10:00 01/05/20 12:33 DC Non-Formulary Medication ( See Comment Field Below ) SEE COMMENTS SECTION DAILY@1000 XX 01/09/20 10:00 01/10/20 09:59 Non-Formulary Medication ( See Comment Field Below ) SEE LABEL COMMENTS DAILY XX 01/05/20 09:00 01/05/20 13:42 DC Non-Formulary Medication ( See Comment Field Below ) SEE LABEL COMMENTS DAILY XX 01/06/20 09:00 01/07/20 11:04 DC Propranolol HCl (Inderal) 10 mg TID PO 12/26/19 21:00 01/08/20 08:25 Trazodone HCl (Desyrel) 50 mg QHSP PRN PO INSOMNIA 12/26/19 18:30 Cancel Zolpidem Tartrate (Ambien) 10 mg QHSP PRN PO Insomnia 12/26/19 20:00 01/02/20 19:59 DC 01/01/20 20:51 Allergies Coded Allergies: No Known Allergies (Unverified , 12/26/19) MO KEYES DO Jan 08, 2020 09:52
[2020-01-08 18:00] VITALS: BP_SYST 140
[2020-01-08] MEDS ORDERED: TUBERCULIN PPD 5 UNITS/0.1 ML ID ONE (18:00)
[2020-01-08] MEDS: diphenhydrAMINE 50MG CAP PO PRN (20:57)
[2020-01-08] MEDS: zolPIDEM TARTRATE 5 MG TAB PO PRN (23:24)
[2020-01-09] MEDS: LEVOTHYROXINE 25MCG TABLET (0.025MG) PO SCH (05:52)
[2020-01-09] MEDS: IBUPROFEN 600MG TAB PO PRN (06:04)
[2020-01-09 06:17] VITALS: BP 140/85
[2020-01-09] MEDS: ARIPiprazole 15 MG TAB (AbiLIFY) PO SCH ×2 (09:49→21:19)
[2020-01-09] MEDS: ATORVASTATIN 20 MG TAB PO SCH (09:49)
[2020-01-09] MEDS: LOSARTAN 25 MG TAB PO SCH (09:49)
[2020-01-09] MEDS: PROPRANOLOL 10 MG TAB PO SCH ×3 (09:50→21:19)
[2020-01-09] MEDS: metFORMIN XR 500MG TAB *GLUCOPHAGE XR PO SCH ×2 (09:50→18:31)
[2020-01-09] MEDS ORDERED: PPD DOCUMENTATION ENTRY MISC XX SCH (10:00)
[2020-01-09] MEDS: zolPIDEM TARTRATE 5 MG TAB PO PRN (21:19)
[2020-01-10] MEDS: LEVOTHYROXINE 25MCG TABLET (0.025MG) PO SCH (05:53)
[2020-01-10 06:33] VITALS: BP 152/80
[2020-01-10] MEDS: LOSARTAN 25 MG TAB PO SCH (08:17)
[2020-01-10] MEDS: ARIPiprazole 15 MG TAB (AbiLIFY) PO SCH ×2 (08:17→20:19)
[2020-01-10] MEDS: metFORMIN XR 500MG TAB *GLUCOPHAGE XR PO SCH ×2 (08:18→18:01)
[2020-01-10] MEDS: PROPRANOLOL 10 MG TAB PO SCH ×3 (08:19→20:19)
[2020-01-10] MEDS: ATORVASTATIN 20 MG TAB PO SCH (08:19)
[2020-01-10] MEDS ORDERED: PPD DOCUMENTATION ENTRY MISC XX ONE (18:00)
[2020-01-10 18:35] VITALS: BP 162/82
[2020-01-10] MEDS: zolPIDEM TARTRATE 5 MG TAB PO PRN (20:18)
[2020-01-11] MEDS: diphenhydrAMINE 50MG CAP PO PRN (04:04)
[2020-01-11] MEDS: LEVOTHYROXINE 25MCG TABLET (0.025MG) PO SCH (05:54)
[2020-01-11 06:23] VITALS: BP 151/81
[2020-01-11] MEDS: metFORMIN XR 500MG TAB *GLUCOPHAGE XR PO SCH ×2 (09:24→17:41)
[2020-01-11] MEDS: ATORVASTATIN 20 MG TAB PO SCH (09:24)
[2020-01-11] MEDS: ARIPiprazole 15 MG TAB (AbiLIFY) PO SCH ×2 (09:24→20:44)
[2020-01-11] MEDS: LOSARTAN 25 MG TAB PO SCH (09:24)
[2020-01-11] MEDS: PROPRANOLOL 10 MG TAB PO SCH ×3 (09:24→20:44)
[2020-01-11] MEDS: IBUPROFEN 600MG TAB PO PRN (09:26)
--- NOTE | 2020-01-11 09:56 | MHIPNPDOC ---
[facility] Progress Note Progress Note DATE OF SERVICE: 01/11/20 HISTORY: . VITAL SIGNS: See below. NEW TEST RESULTS: . CURRENT MEDICATIONS: See below. MENTAL STATUS EXAMINATION: Patient is a -year old male, who is . Speech: Is . Language skills are . Thought processes including: . Thought content: . Abstract reasoning, and computation: . Description of associa tions: . Description of abnormal or psychotic thoughts: . Judgment: . Insight: [very limited, good, fair. poor]. Orientation: . Recent and remote memory: . Attention span and concentration: . Language: . Fund of knowledge: . Mood: . Affect: . DIAGNOSES: 1. . 2. . 3. . ASSESSMENT: MANAGEMENT PLAN: . TIME SPENT: minutes. Vital Signs Vital Signs Date Time Temp Pulse Resp B/P (MAP) Pulse Ox O2 Delivery O2 Flow Rate FiO2 01/11/20 09:24 73 151/81 01/11/20 06:23 97.7 14 94 Room Air Current Medications Current Medications Medications (Trade) Dose Ordered Sig/Vaishnavi Route PRN Reason Start Time Stop Time Status Last Admin Dose Admin Acetaminophen (Tylenol Tab) 650 mg Q6HP PRN PO HEADACHE or DISCOMFORT 12/26/19 18:30 Cancel Al Hydrox/Mg Hydrox/Simethicone (Mylanta) 30 ml Q4HP PRN PO HEARTBURN/INDIGESTION 12/26/19 18:30 Aripiprazole (AbiLIFY) 15 mg BID PO 12/26/19 21:00 01/11/20 09:24 Atorvastatin Calcium (Lipitor) 20 mg DAILY PO 12/27/19 09:00 01/11/20 09:24 Diphenhydramine HCl (Benadryl) 50 mg TID PRN PO ANXIETY/AGITATION 12/26/19 20:00 01/11/20 04:04 Haloperidol (Haldol) 20 mg QHS PO 12/26/19 21:00 01/10/20 20:18 Home Med (Med Rec Complete!) ASDIRECTED XX 12/26/19 19:00 12/26/19 18:55 DC Ibuprofen (Advil) 600 mg TID PRN PO PAIN 12/26/19 20:00 01/11/20 09:26 Levothyroxine Sodium (Synthroid) 25 mcg DAILY@0600 PO 12/27/19 06:00 01/11/20 05:54 Losartan Potassium (Cozaar) 25 mg DAILY PO 12/27/19 09:00 01/11/20 09:24 Magnesium Hydroxide (Milk Of Magnesia) 30 ml DAILYPRN PRN PO CONSTIPATION 12/26/19 18:30 Metformin HCl (Glucophage Xr) 500 mg BID@0800,1800 PO 12/26/19 18:00 01/11/20 09:24 Non-Formulary Medication ( See Comment Field Below ) SEE COMMENTS SECTION 1T@10 XX 01/07/20 10:00 01/05/20 12:33 DC Non-Formulary Medication ( See Comment Field Below ) SEE COMMENTS SECTION DAILY@1000 XX 01/09/20 10:00 01/10/20 09:59 DC Non-Formulary Medication ( See Comment Field Below ) SEE LABEL COMMENTS DAILY XX 01/05/20 09:00 01/05/20 13:42 DC Non-Formulary Medication ( See Comment Field Below ) SEE LABEL COMMENTS DAILY XX 01/06/20 09:00 01/07/20 11:04 DC Propranolol HCl (Inderal) 10 mg TID PO 12/26/19 21:00 01/11/20 09:24 Trazodone HCl (Desyrel) 50 mg QHSP PRN PO INSOMNIA 12/26/19 18:30 Cancel Zolpidem Tartrate (Ambien) 10 mg QHSP PRN PO Insomnia 12/26/19 20:00 01/02/20 19:59 DC 01/01/20 20:51 Zolpidem Tartrate (Ambien) 10 mg QHSP PRN PO Insomnia 01/08/20 23:00 01/10/20 20:18 Allergies Coded Allergies: No Known Allergies (Unverified , 12/26/19) MO KEYES DO Jan 11, 2020 09:56
[2020-01-11 17:50] VITALS: BP 152/88
[2020-01-11] MEDS: zolPIDEM TARTRATE 5 MG TAB PO PRN (20:43)
[2020-01-12] MEDS: LEVOTHYROXINE 25MCG TABLET (0.025MG) PO SCH (05:13)
[2020-01-12 06:13] VITALS: BP 146/97
--- NOTE | 2020-01-12 09:49 | MHIPNPDOC ---
[facility] Progress Note Progress Note DATE OF SERVICE: 01/12/20 Subjective HPI: Rachid presents today for his schizophrenia. speakers in yes and no answers, thought blocking present, generally not conversive. Nursing staff note that he hasn't had an episodes of agitation over night. Objective Appearance: Poor hygiene. Appears to be stated age. Well nourished. Affect: Flat. Mood: "fine" Speech: Nearly mute. Thought Form: Thought blocking present. Judgement: Poor. Insight: Poor. Assessment F20.89 Other schizophrenia Plan The patient was met with today. He is still fairly flat. However, he meets with his provider only superficially and does not engage much with significant thought blocking. Has had no episodes of agitation but has been noticing to be yelling at himself, talking incoherently to unseen others. Will start Clozapine as an augmentation agent 12.5 mg. CBC to be drawn. Cancel discharge as patient could be improved, possibly may need long-term. Vital Signs Vital Signs Date Time Temp Pulse Resp B/P (MAP) Pulse Ox O2 Delivery O2 Flow Rate FiO2 01/12/20 06:13 97.3 69 15 146/97 (113) 95 Room Air Current Medications Current Medications Medications (Trade) Dose Ordered Sig/Vaishnavi Route PRN Reason Start Time Stop Time Status Last Admin Dose Admin Acetaminophen (Tylenol Tab) 650 mg Q6HP PRN PO HEADACHE or DISCOMFORT 12/26/19 18:30 Cancel Al Hydrox/Mg Hydrox/Simethicone (Mylanta) 30 ml Q4HP PRN PO HEARTBURN/INDIGESTION 12/26/19 18:30 Aripiprazole (AbiLIFY) 15 mg BID PO 12/26/19 21:00 01/11/20 20:44 Atorvastatin Calcium (Lipitor) 20 mg DAILY PO 12/27/19 09:00 01/11/20 09:24 Diphenhydramine HCl (Benadryl) 50 mg TID PRN PO ANXIETY/AGITATION 12/26/19 20:00 01/11/20 04:04 Haloperidol (Haldol) 20 mg QHS PO 12/26/19 21:00 01/11/20 20:43 Home Med (Med Rec Complete!) ASDIRECTED XX 12/26/19 19:00 12/26/19 18:55 DC Ibuprofen (Advil) 600 mg TID PRN PO PAIN 12/26/19 20:00 01/11/20 09:26 Levothyroxine Sodium (Synthroid) 25 mcg DAILY@0600 PO 12/27/19 06:00 01/12/20 05:13 Losartan Potassium (Cozaar) 25 mg DAILY PO 12/27/19 09:00 01/11/20 09:24 Magnesium Hydroxide (Milk Of Magnesia) 30 ml DAILYPRN PRN PO CONSTIPATION 12/26/19 18:30 Metformin HCl (Glucophage Xr) 500 mg BID@0800,1800 PO 12/26/19 18:00 01/11/20 17:41 Non-Formulary Medication ( See Comment Field Below ) SEE COMMENTS SECTION 1T@10 XX 01/07/20 10:00 01/05/20 12:33 DC Non-Formulary Medication ( See Comment Field Below ) SEE COMMENTS SECTION DAILY@1000 XX 01/09/20 10:00 01/10/20 09:59 DC Non-Formulary Medication ( See Comment Field Below ) SEE LABEL COMMENTS DAILY XX 01/05/20 09:00 01/05/20 13:42 DC Non-Formulary Medication ( See Comment Field Below ) SEE LABEL COMMENTS DAILY XX 01/06/20 09:00 01/07/20 11:04 DC Propranolol HCl (Inderal) 10 mg TID PO 12/26/19 21:00 01/11/20 20:44 Trazodone HCl (Desyrel) 50 mg QHSP PRN PO INSOMNIA 12/26/19 18:30 Cancel Zolpidem Tartrate (Ambien) 10 mg QHSP PRN PO Insomnia 12/26/19 20:00 01/02/20 19:59 DC 01/01/20 20:51 Zolpidem Tartrate (Ambien) 10 mg QHSP PRN PO Insomnia 01/08/20 23:00 01/11/20 20:43 Allergies Coded Allergies: No Known Allergies (Unverified , 12/26/19) MO KEYES DO Jan 12, 2020 09:49
[2020-01-12] MEDS: PROPRANOLOL 10 MG TAB PO SCH ×3 (10:05→21:57)
[2020-01-12] MEDS: ATORVASTATIN 20 MG TAB PO SCH (10:05)
[2020-01-12] MEDS: metFORMIN XR 500MG TAB *GLUCOPHAGE XR PO SCH ×2 (10:05→16:58)
[2020-01-12] MEDS: LOSARTAN 25 MG TAB PO SCH (10:06)
[2020-01-12] MEDS: ARIPiprazole 15 MG TAB (AbiLIFY) PO SCH ×2 (10:06→21:57)
[2020-01-12 11:32] LABS: BASO % 0.3 % (0.0-1.0); EOS # 0.1 10^3/uL (0.0-0.5); HEMATOCRIT 44.5 % (42.0-52.0); LYMPH # 2.4 10^3/uL (1.5-5.0); MEAN CORPUSCULAR HGB CONC 33.7 g/dl (32.0-36.5); MEAN CORPUSCULAR VOLUME 85.9 fl (80.0-96.0); MONO # 0.7 10^3/uL (0.0-0.8); NEUTROPHILS # 2.9 10^3/uL (1.5-8.5); NEUTROPHILS % 47.5 % (36.0-66.0); PLATELET COUNT, AUTOMATED 212 10^3/uL (150-450); RED BLOOD COUNT 5.18 10^6/uL (4.30-6.10); WHITE BLOOD COUNT 6.2 10^3/uL (4.0-10.0)
[2020-01-12 18:00] VITALS: BP 166/99
[2020-01-12] MEDS ORDERED: cloZAPine 25 MG TAB (S0136) PO SCH (21:00)
[2020-01-12] MEDS: zolPIDEM TARTRATE 5 MG TAB PO PRN (21:56)
[2020-01-13] MEDS: LEVOTHYROXINE 25MCG TABLET (0.025MG) PO SCH (06:09)
[2020-01-13 06:24] VITALS: BP 162/76
--- NOTE | 2020-01-13 08:51 | MHIPNPDOC ---
[facility] Progress Note Progress Note DATE OF SERVICE: 01/13/20 Subjective HPI: Rachid presents today for his inpatient psychiatric admission. He is attempted to be met with today, but he refuses to meet with his provider, stating that he is getting his blood drawn. He is somewhat bizarre and although nursing staff note that he is more talkative, they report many delusions of being a cartridge belt puncher and being a famous martial artist. Objective Appearance: Hygiene poor. Well nourished. Appears to be stated age. Cognition: Impaired secondary to thought process. Thought Form: Thought blocking. Tangential and paranoid with grandiose delusions. Judgement: Poor. Insight: Poor. Assessment F20.9 Schizophrenia, unspecified Plan Start Clozapine at 25 mg nightly. Monitor for constipation. CBC to be repeated. Likely bed-to-bed to either long-term or to new group house as he improves. Vital Signs Vital Signs Date Time Temp Pulse Resp B/P (MAP) Pulse Ox O2 Delivery O2 Flow Rate FiO2 01/13/20 06:24 97.0 96 16 162/76 (104) 97 Room Air Laboratory Data 24H Labs Laboratory Tests 2 01/12/20 11:13: Immature Granulocyte % (Auto) 0.2, Neutrophils (%) (Auto) 47.5, Lymphocytes (%) (Auto) 39.0, Monocytes (%) (Auto) 12.0H, Eosinophils (%) (Auto) 1.0, Basophils (%) (Auto) 0.3, Neutrophils # (Auto) 2.9, Lymphocytes # (Auto) 2.4, Monocytes # (Auto) 0.7, Eosinophils # (Auto) 0.1, Basophils # (Auto) 0.0, Nucleated Red Blood Cells % (auto) 0.0 CBC/BMP Laboratory Tests 01/12/20 11:13 Current Medications Current Medications Medications (Trade) Dose Ordered Sig/Vaishnavi Route PRN Reason Start Time Stop Time Status Last Admin Dose Admin Acetaminophen (Tylenol Tab) 650 mg Q6HP PRN PO HEADACHE or DISCOMFORT 12/26/19 18:30 Cancel Al Hydrox/Mg Hydrox/Simethicone (Mylanta) 30 ml Q4HP PRN PO HEARTBURN/INDIGESTION 12/26/19 18:30 Aripiprazole (AbiLIFY) 15 mg BID PO 12/26/19 21:00 01/12/20 21:57 Atorvastatin Calcium (Lipitor) 20 mg DAILY PO 12/27/19 09:00 01/12/20 10:05 Clozapine (Clozaril) 12.5 mg QHS PO 01/12/20 21:00 01/12/20 21:57 Diphenhydramine HCl (Benadryl) 50 mg TID PRN PO ANXIETY/AGITATION 12/26/19 20:00 01/11/20 04:04 Haloperidol (Haldol) 20 mg QHS PO 12/26/19 21:00 01/12/20 21:57 Home Med (Med Rec Complete!) ASDIRECTED XX 12/26/19 19:00 12/26/19 18:55 DC Ibuprofen (Advil) 600 mg TID PRN PO PAIN 12/26/19 20:00 01/11/20 09:26 Levothyroxine Sodium (Synthroid) 25 mcg DAILY@0600 PO 12/27/19 06:00 01/13/20 06:09 Losartan Potassium (Cozaar) 25 mg DAILY PO 12/27/19 09:00 01/12/20 10:06 Magnesium Hydroxide (Milk Of Magnesia) 30 ml DAILYPRN PRN PO CONSTIPATION 12/26/19 18:30 Metformin HCl (Glucophage Xr) 500 mg BID@0800,1800 PO 12/26/19 18:00 01/12/20 16:58 Non-Formulary Medication ( See Comment Field Below ) SEE COMMENTS SECTION 1T@10 XX 01/07/20 10:00 01/05/20 12:33 DC Non-Formulary Medication ( See Comment Field Below ) SEE COMMENTS SECTION DAILY@1000 XX 01/09/20 10:00 01/10/20 09:59 DC Non-Formulary Medication ( See Comment Field Below ) SEE LABEL COMMENTS DAILY XX 01/05/20 09:00 01/05/20 13:42 DC Non-Formulary Medication ( See Comment Field Below ) SEE LABEL COMMENTS DAILY XX 01/06/20 09:00 01/07/20 11:04 DC Propranolol HCl (Inderal) 10 mg TID PO 12/26/19 21:00 01/12/20 21:57 Trazodone HCl (Desyrel) 50 mg QHSP PRN PO INSOMNIA 12/26/19 18:30 Cancel Zolpidem Tartrate (Ambien) 10 mg QHSP PRN PO Insomnia 12/26/19 20:00 01/02/20 19:59 DC 01/01/20 20:51 Zolpidem Tartrate (Ambien) 10 mg QHSP PRN PO Insomnia 01/08/20 23:00 01/12/20 21:56 Allergies Coded Allergies: No Known Allergies (Unverified , 12/26/19) MO KEYES DO Jan 13, 2020 08:51
[2020-01-13] MEDS: metFORMIN XR 500MG TAB *GLUCOPHAGE XR PO SCH ×2 (09:31→17:10)
[2020-01-13] MEDS: PROPRANOLOL 10 MG TAB PO SCH ×3 (09:32→21:45)
[2020-01-13] MEDS: LOSARTAN 25 MG TAB PO SCH (09:32)
[2020-01-13] MEDS: ATORVASTATIN 20 MG TAB PO SCH (09:32)
[2020-01-13] MEDS: ARIPiprazole 15 MG TAB (AbiLIFY) PO SCH ×2 (09:32→21:44)
[2020-01-13 17:47] VITALS: BP 140/84
[2020-01-13] MEDS: zolPIDEM TARTRATE 5 MG TAB PO PRN (21:44)
[2020-01-13] MEDS: cloZAPine 25 MG TAB (S0136) PO SCH (21:44)
[2020-01-14] MEDS: diphenhydrAMINE 50MG CAP PO PRN (01:06)
[2020-01-14] MEDS: LEVOTHYROXINE 25MCG TABLET (0.025MG) PO SCH (06:20)
[2020-01-14 06:34] VITALS: BP 140/69
--- NOTE | 2020-01-14 07:47 | MHIPNPDOC ---
[facility] Progress Note Progress Note DATE OF SERVICE: 01/14/20 Subjective HPI: Rachid presents today for a follow-up regarding his medication. Patient notes that he is doing okay. Patient states his new medication is doing well for now. He notes he has quieter thoughts. Patient states he is going to the bathroom well. Patient denies suicidal thoughts or hallucinations. Patient is concerned about weight loss. Objective Appearance: Poor hygiene. Appears to be stated age. Well nourished. Affect: Flat. Mood: Generally good. Appropriately reactive. Euthymic. Speech: Nearly mute. Thought Form: Thought blocking present. Judgement: Poor. Insight: Poor. Assessment F20.89 Other schizophrenia Plan Patient will continue current medication regimen. Vital Signs Vital Signs Date Time Temp Pulse Resp B/P (MAP) Pulse Ox O2 Delivery O2 Flow Rate FiO2 01/14/20 06:34 97.4 64 16 140/69 (92) 92 Room Air Current Medications Current Medications Medications (Trade) Dose Ordered Sig/Vaishnavi Route PRN Reason Start Time Stop Time Status Last Admin Dose Admin Acetaminophen (Tylenol Tab) 650 mg Q6HP PRN PO HEADACHE or DISCOMFORT 12/26/19 18:30 Cancel Al Hydrox/Mg Hydrox/Simethicone (Mylanta) 30 ml Q4HP PRN PO HEARTBURN/INDIGESTION 12/26/19 18:30 Aripiprazole (AbiLIFY) 15 mg BID PO 12/26/19 21:00 01/13/20 21:44 Atorvastatin Calcium (Lipitor) 20 mg DAILY PO 12/27/19 09:00 01/13/20 09:32 Clozapine (Clozaril) 12.5 mg QHS PO 01/12/20 21:00 01/13/20 17:10 DC 01/12/20 21:57 Clozapine (Clozaril) 25 mg QHS PO 01/13/20 21:00 01/13/20 21:44 Diphenhydramine HCl (Benadryl) 50 mg TID PRN PO ANXIETY/AGITATION 12/26/19 20:00 01/14/20 01:06 Haloperidol (Haldol) 20 mg QHS PO 12/26/19 21:00 01/13/20 21:44 Home Med (Med Rec Complete!) ASDIRECTED XX 12/26/19 19:00 12/26/19 18:55 DC Ibuprofen (Advil) 600 mg TID PRN PO PAIN 12/26/19 20:00 01/11/20 09:26 Levothyroxine Sodium (Synthroid) 25 mcg DAILY@0600 PO 12/27/19 06:00 01/14/20 06:20 Losartan Potassium (Cozaar) 25 mg DAILY PO 12/27/19 09:00 01/13/20 09:32 Magnesium Hydroxide (Milk Of Magnesia) 30 ml DAILYPRN PRN PO CONSTIPATION 12/26/19 18:30 Metformin HCl (Glucophage Xr) 500 mg BID@0800,1800 PO 12/26/19 18:00 01/13/20 17:10 Non-Formulary Medication ( See Comment Field Below ) SEE COMMENTS SECTION 1T@10 XX 01/07/20 10:00 01/05/20 12:33 DC Non-Formulary Medication ( See Comment Field Below ) SEE COMMENTS SECTION DAILY@1000 XX 01/09/20 10:00 01/10/20 09:59 DC Non-Formulary Medication ( See Comment Field Below ) SEE LABEL COMMENTS DAILY XX 01/05/20 09:00 01/05/20 13:42 DC Non-Formulary Medication ( See Comment Field Below ) SEE LABEL COMMENTS DAILY XX 01/06/20 09:00 01/07/20 11:04 DC Propranolol HCl (Inderal) 10 mg TID PO 12/26/19 21:00 01/13/20 21:45 Trazodone HCl (Desyrel) 50 mg QHSP PRN PO INSOMNIA 12/26/19 18:30 Cancel Zolpidem Tartrate (Ambien) 10 mg QHSP PRN PO Insomnia 12/26/19 20:00 01/02/20 19:59 DC 01/01/20 20:51 Zolpidem Tartrate (Ambien) 10 mg QHSP PRN PO Insomnia 01/08/20 23:00 01/13/20 21:44 Allergies Coded Allergies: No Known Allergies (Unverified , 12/26/19) MO KEYES DO Jan 14, 2020 07:47
[2020-01-14] MEDS: ARIPiprazole 15 MG TAB (AbiLIFY) PO SCH ×2 (09:29→20:05)
[2020-01-14] MEDS: metFORMIN XR 500MG TAB *GLUCOPHAGE XR PO SCH ×2 (09:29→16:54)
[2020-01-14] MEDS: ATORVASTATIN 20 MG TAB PO SCH (09:30)
[2020-01-14] MEDS: LOSARTAN 25 MG TAB PO SCH (09:30)
[2020-01-14] MEDS: PROPRANOLOL 10 MG TAB PO SCH ×3 (09:30→20:06)
[2020-01-14 16:06] VITALS: BP 144/78
[2020-01-14] MEDS: cloZAPine 25 MG TAB (S0136) PO SCH (20:05)
[2020-01-14] MEDS: zolPIDEM TARTRATE 5 MG TAB PO PRN (20:05)
[2020-01-15] MEDS: LEVOTHYROXINE 25MCG TABLET (0.025MG) PO SCH (05:40)
[2020-01-15 06:47] VITALS: BP_SYST 102; BP_SYST 150; BP_DIAS 72; BP_DIAS 84
--- NOTE | 2020-01-15 09:23 | MHHPE ---
DATE OF ADMISSION: 12/26/2019 CHIEF COMPLAINT: Says he is not sure why he is here. SUBJECTIVE: He is 49 years old, has a history of schizophrenia, attends [facility] in [place], through [facility], has had several inpatient hospitalizations, per the patient, says was last admitted a couple of years ago, but it should be noted the patient is not a very reliable historian, most of the history is obtained from the emergency room (ER) report. He was essentially transferred from [facility], as they apparently had no beds. He had gone there as there were concerns regarding his ability to cater to himself, has been experiencing auditory hallucinations, has apparently been off his medicines, and has had difficulty looking after himself, we understand that the living situation was also quite challenging, he says stays on his own, has family in the area, including a mother, but unsure of contact with her as such. He says he had missed taking a medication, which he calls [facility], says it is a Phenobarbital, but I am not sure whether he is on it in the first place. 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 PAST PSYCHIATRIC HISTORY: Has a history of schizophrenia. Has had several inpatient hospitalizations. Attends a clinic at [place]. According to some of the records, he is on various medications, these include: - haloperidol decanoate 100 mg every month, last received it 12/05/2019 - he is also on Abilify 15 mg twice a day - oral Haldol 22.5 mg daily - Synthroid 25 mcg daily - ibuprofen 600 mg every 6 hours as needed - Claritin 10 mg daily - losartan 25 mg daily - metformin, though there is some confusion as to how much he takes - propranolol 10 mg three times a day MEDICAL HISTORY: Hypertension, diabetes, hypothyroidism, high cholesterol. SOCIAL HISTORY: Unclear of details, but I understand he stays on his own, and has been having an increasingly difficult time maintaining his being on his own, and police were asked to intervene, and they brought him to hospital at [facility]. MENTAL STATUS EXAMINATION: Fair hygiene, he is obese, at present he is shirtless, has a long benton, long hair. Cooperative, no agitation, no psychomotor retardation, tangential in thought, and speaks somewhat rapid, and at times difficult to understand. Denies any thoughts of harming himself or anyone else. Does not appear internally preoccupied but is paranoid. He is alert, oriented to time, place, and person. Intellect average. No fluctuation of consciousness. Judgment and insight are poor. ASSESSMENT: Schizophrenia. PLAN: He is admitted to the inpatient psychiatry unit, placed on relevant precautions, this is to help address his decompensation, the patient will be resumed on his previous medications, we will look at obtaining collateral information from the patients clinicians, the clinic, and, if possible, family members. He will receive a medicine consult if indicated. He will be discharged with followup once he is stable. Anticipate a 5-7 day stay. The patient will be seeing the assigned clinician tomorrow, when further recommendations will be made. He agrees with the plan. The assessment took 30 minutes. DENYS
[2020-01-15] MEDS: ARIPiprazole 15 MG TAB (AbiLIFY) PO SCH ×2 (09:37→22:09)
[2020-01-15] MEDS: metFORMIN XR 500MG TAB *GLUCOPHAGE XR PO SCH ×2 (09:37→17:52)
[2020-01-15] MEDS: PROPRANOLOL 10 MG TAB PO SCH ×3 (09:37→22:10)
[2020-01-15] MEDS: ATORVASTATIN 20 MG TAB PO SCH (09:37)
[2020-01-15] MEDS: LOSARTAN 25 MG TAB PO SCH (09:37)
--- NOTE | 2020-01-15 10:40 | MHIPNPDOC ---
[facility] Progress Note Progress Note DATE OF SERVICE: 01/15/20 Subjective HPI: Rachid presents today for concerns regarding his schizophrenia. Patient has been very sleepy and awakens only for a short time. He does not have any difficulties with bowel movements at this time. Patient has been observed walking around and engaging more. He has been more talkative but also has daytime sleepiness. Objective Appearance: Fair hygiene. Behavior: Some thought blocking. Doesnt answer questions. Somewhat engaged. Judgement: Poor. Insight: Poor. Assessment F20.81 Schizophreniform disorder Plan Continue Clozaril 25 mg nightly CBC to be drawn next week along with EKG due to multiple antipsychotics. Group house bed to bed transfer would be ideal given patients current situation. Vital Signs Vital Signs Date Time Temp Pulse Resp B/P (MAP) Pulse Ox O2 Delivery O2 Flow Rate FiO2 01/15/20 09:37 76 150/84 01/15/20 06:47 97.7 16 96 Room Air Current Medications Current Medications Medications (Trade) Dose Ordered Sig/Vaishnavi Route PRN Reason Start Time Stop Time Status Last Admin Dose Admin Acetaminophen (Tylenol Tab) 650 mg Q6HP PRN PO HEADACHE or DISCOMFORT 12/26/19 18:30 Cancel Al Hydrox/Mg Hydrox/Simethicone (Mylanta) 30 ml Q4HP PRN PO HEARTBURN/INDIGESTION 12/26/19 18:30 Aripiprazole (AbiLIFY) 15 mg BID PO 12/26/19 21:00 01/15/20 09:37 Atorvastatin Calcium (Lipitor) 20 mg DAILY PO 12/27/19 09:00 01/15/20 09:37 Clozapine (Clozaril) 12.5 mg QHS PO 01/12/20 21:00 01/13/20 17:10 DC 01/12/20 21:57 Clozapine (Clozaril) 25 mg QHS PO 01/13/20 21:00 01/14/20 20:05 Diphenhydramine HCl (Benadryl) 50 mg TID PRN PO ANXIETY/AGITATION 12/26/19 20:00 01/14/20 01:06 Haloperidol (Haldol) 20 mg QHS PO 12/26/19 21:00 01/14/20 20:05 Home Med (Med Rec Complete!) ASDIRECTED XX 12/26/19 19:00 12/26/19 18:55 DC Ibuprofen (Advil) 600 mg TID PRN PO PAIN 12/26/19 20:00 01/11/20 09:26 Levothyroxine Sodium (Synthroid) 25 mcg DAILY@0600 PO 12/27/19 06:00 01/15/20 05:40 Losartan Potassium (Cozaar) 25 mg DAILY PO 12/27/19 09:00 01/15/20 09:37 Magnesium Hydroxide (Milk Of Magnesia) 30 ml DAILYPRN PRN PO CONSTIPATION 12/26/19 18:30 Metformin HCl (Glucophage Xr) 500 mg BID@0800,1800 PO 12/26/19 18:00 01/15/20 09:37 Miscellaneous (Unresolved Clarification Entry) SEE LABEL COMMENTS DAILY XX 01/15/20 09:00 Non-Formulary Medication ( See Comment Field Below ) SEE COMMENTS SECTION 1T@10 XX 01/07/20 10:00 01/05/20 12:33 DC Non-Formulary Medication ( See Comment Field Below ) SEE COMMENTS SECTION DAILY@1000 XX 01/09/20 10:00 01/10/20 09:59 DC Non-Formulary Medication ( See Comment Field Below ) SEE LABEL COMMENTS DAILY XX 01/05/20 09:00 01/05/20 13:42 DC Non-Formulary Medication ( See Comment Field Below ) SEE LABEL COMMENTS DAILY XX 01/06/20 09:00 01/07/20 11:04 DC Propranolol HCl (Inderal) 10 mg TID PO 12/26/19 21:00 01/15/20 09:37 Trazodone HCl (Desyrel) 50 mg QHSP PRN PO INSOMNIA 12/26/19 18:30 Cancel Zolpidem Tartrate (Ambien) 10 mg QHSP PRN PO Insomnia 12/26/19 20:00 01/02/20 19:59 DC 01/01/20 20:51 Zolpidem Tartrate (Ambien) 10 mg QHSP PRN PO Insomnia 01/08/20 23:00 01/14/20 20:05 Allergies Coded Allergies: No Known Allergies (Unverified , 12/26/19) MO KEYES DO Jan 15, 2020 10:40
[2020-01-15 18:03] VITALS: BP 154/74
[2020-01-15] MEDS: cloZAPine 25 MG TAB (S0136) PO SCH (22:09)
[2020-01-15] MEDS: zolPIDEM TARTRATE 5 MG TAB PO PRN (22:11)
[2020-01-16] MEDS: LEVOTHYROXINE 25MCG TABLET (0.025MG) PO SCH (06:17)
[2020-01-16 06:35] VITALS: BP 157/80
[2020-01-16] MEDS: ATORVASTATIN 20 MG TAB PO SCH (10:06)
[2020-01-16] MEDS: ARIPiprazole 15 MG TAB (AbiLIFY) PO SCH ×2 (10:06→22:01)
[2020-01-16] MEDS: metFORMIN XR 500MG TAB *GLUCOPHAGE XR PO SCH ×2 (10:09→16:53)
[2020-01-16] MEDS: LOSARTAN 25 MG TAB PO SCH (10:11)
[2020-01-16] MEDS: PROPRANOLOL 10 MG TAB PO SCH ×3 (10:12→22:01)
[2020-01-16 18:00] VITALS: BP 130/77
[2020-01-16] MEDS: zolPIDEM TARTRATE 5 MG TAB PO PRN (22:00)
[2020-01-16] MEDS: cloZAPine 25 MG TAB (S0136) PO SCH (22:01)
[2020-01-17] MEDS: LEVOTHYROXINE 25MCG TABLET (0.025MG) PO SCH (05:09)
[2020-01-17 06:19] VITALS: BP 139/68
[2020-01-17] MEDS: metFORMIN XR 500MG TAB *GLUCOPHAGE XR PO SCH ×2 (09:39→17:37)
[2020-01-17] MEDS: LOSARTAN 25 MG TAB PO SCH (09:40)
[2020-01-17] MEDS: PROPRANOLOL 10 MG TAB PO SCH ×3 (09:40→20:58)
[2020-01-17] MEDS: ATORVASTATIN 20 MG TAB PO SCH (09:40)
[2020-01-17] MEDS: ARIPiprazole 15 MG TAB (AbiLIFY) PO SCH ×2 (09:40→20:57)
[2020-01-17 18:00] VITALS: BP 132/72
[2020-01-17] MEDS: cloZAPine 25 MG TAB (S0136) PO SCH (20:57)
[2020-01-17] MEDS: zolPIDEM TARTRATE 5 MG TAB PO PRN (20:59)
[2020-01-17] MEDS: IBUPROFEN 600MG TAB PO PRN (20:59)
[2020-01-18] MEDS: LEVOTHYROXINE 25MCG TABLET (0.025MG) PO SCH (05:42)
[2020-01-18 06:01] VITALS: BP 162/90
[2020-01-18] MEDS: LOSARTAN 25 MG TAB PO SCH (08:51)
[2020-01-18] MEDS: PROPRANOLOL 10 MG TAB PO SCH ×3 (08:51→21:34)
[2020-01-18] MEDS: ATORVASTATIN 20 MG TAB PO SCH (08:51)
[2020-01-18] MEDS: ARIPiprazole 15 MG TAB (AbiLIFY) PO SCH ×2 (08:52→21:33)
[2020-01-18] MEDS: metFORMIN XR 500MG TAB *GLUCOPHAGE XR PO SCH ×2 (08:52→17:21)
--- NOTE | 2020-01-18 10:12 | MHIPNPDOC ---
[facility] Progress Note Progress Note DATE OF SERVICE: 01/18/20 Subjective HPI: Patient I met with today. He reports that he is doing well and that his voices are a lot less loud. Reports hes feeling better. Hes been noticeably more active. Still only wants to meet in the public areas. The patient denies any SI or HI. Reports hes feeling better, but still having some delusional thinking per nursing staff. Objective Speech: Spontaneous and Fluid. Normal rate. Normal volume. Thought Form: Linear and goal directed. Thought Content: Voices are improving. Judgement: Poor. Insight: Poor. Assessment F20.9 Schizophrenia, unspecified Plan Increase Clozaril to 50 mg nightly. Order CBC and EKG to monitor heart rhythms. Vital Signs Vital Signs Date Time Temp Pulse Resp B/P (MAP) Pulse Ox O2 Delivery O2 Flow Rate FiO2 01/18/20 08:51 80 142/96 01/18/20 06:01 98.4 18 94 01/16/20 06:35 Room Air Laboratory Data 24H Labs Laboratory Tests 2 01/17/20 16:20: Bedside Glucose (Misc Panel) 159H 01/18/20 05:45: Bedside Glucose (Misc Panel) 136H Current Medications Current Medications Medications (Trade) Dose Ordered Sig/Vaishnavi Route PRN Reason Start Time Stop Time Status Last Admin Dose Admin Acetaminophen (Tylenol Tab) 650 mg Q6HP PRN PO HEADACHE or DISCOMFORT 12/26/19 18:30 Cancel Al Hydrox/Mg Hydrox/Simethicone (Mylanta) 30 ml Q4HP PRN PO HEARTBURN/INDIGESTION 12/26/19 18:30 Aripiprazole (AbiLIFY) 15 mg BID PO 12/26/19 21:00 01/18/20 08:52 Atorvastatin Calcium (Lipitor) 20 mg DAILY PO 12/27/19 09:00 01/18/20 08:51 Clozapine (Clozaril) 12.5 mg QHS PO 01/12/20 21:00 01/13/20 17:10 DC 01/12/20 21:57 Clozapine (Clozaril) 25 mg QHS PO 01/13/20 21:00 01/17/20 20:57 Diphenhydramine HCl (Benadryl) 50 mg TID PRN PO ANXIETY/AGITATION 12/26/19 20:00 01/14/20 01:06 Haloperidol (Haldol) 20 mg QHS PO 12/26/19 21:00 01/17/20 20:57 Home Med (Med Rec Complete!) ASDIRECTED XX 12/26/19 19:00 12/26/19 18:55 DC Ibuprofen (Advil) 600 mg TID PRN PO PAIN 12/26/19 20:00 01/17/20 20:59 Levothyroxine Sodium (Synthroid) 25 mcg DAILY@0600 PO 12/27/19 06:00 01/18/20 05:42 Losartan Potassium (Cozaar) 25 mg DAILY PO 12/27/19 09:00 01/18/20 08:51 Magnesium Hydroxide (Milk Of Magnesia) 30 ml DAILYPRN PRN PO CONSTIPATION 12/26/19 18:30 Metformin HCl (Glucophage Xr) 500 mg BID@0800,1800 PO 12/26/19 18:00 01/18/20 08:52 Miscellaneous (Unresolved Clarification Entry) SEE LABEL COMMENTS DAILY XX 01/15/20 09:00 01/15/20 14:36 DC Non-Formulary Medication ( See Comment Field Below ) SEE COMMENTS SECTION 1T@10 XX 01/07/20 10:00 01/05/20 12:33 DC Non-Formulary Medication ( See Comment Field Below ) SEE COMMENTS SECTION DAILY@1000 XX 01/09/20 10:00 01/10/20 09:59 DC Non-Formulary Medication ( See Comment Field Below ) SEE LABEL COMMENTS DAILY XX 01/05/20 09:00 01/05/20 13:42 DC Non-Formulary Medication ( See Comment Field Below ) SEE LABEL COMMENTS DAILY XX 01/06/20 09:00 01/07/20 11:04 DC Propranolol HCl (Inderal) 10 mg TID PO 12/26/19 21:00 01/18/20 08:51 Trazodone HCl (Desyrel) 50 mg QHSP PRN PO INSOMNIA 12/26/19 18:30 Cancel Zolpidem Tartrate (Ambien) 10 mg QHSP PRN PO Insomnia 12/26/19 20:00 01/02/20 19:59 DC 01/01/20 20:51 Zolpidem Tartrate (Ambien) 10 mg QHSP PRN PO Insomnia 01/08/20 23:00 01/17/20 20:59 Allergies Coded Allergies: No Known Allergies (Unverified , 12/26/19) OM KEYES DO Jan 18, 2020 10:12
[2020-01-18 13:43] LABS: BASO % 0.3 % (0.0-1.0); EOS # 0.1 10^3/uL (0.0-0.5); EOS % 1.3 % (0.0-3.0); HEMOGLOBIN 14.8 g/dl (13.5-17.5); LYMPH # 2.6 10^3/uL (1.5-5.0); LYMPH % 41.1 % (24.0-44.0); MEAN CORPUSCULAR HEMOGLOBIN 29.3 pg (27.0-33.0); MEAN CORPUSCULAR HGB CONC 34.4 g/dl (32.0-36.5); MEAN CORPUSCULAR VOLUME 85.1 fl (80.0-96.0); MONO # 0.7 10^3/uL (0.0-0.8); MONO % 11.6 % (0.0-5.0); NEUTROPHILS # 2.9 10^3/uL (1.5-8.5); NEUTROPHILS % 45.4 % (36.0-66.0); PLATELET COUNT, AUTOMATED 215 10^3/uL (150-450); RED BLOOD COUNT 5.05 10^6/uL (4.30-6.10); WHITE BLOOD COUNT 6.3 10^3/uL (4.0-10.0)
[2020-01-18 16:36] VITALS: BP 134/82
[2020-01-18] MEDS: cloZAPine 25 MG TAB (S0136) PO SCH (21:33)
[2020-01-18] MEDS: zolPIDEM TARTRATE 5 MG TAB PO PRN (21:35)
[2020-01-19] MEDS: LEVOTHYROXINE 25MCG TABLET (0.025MG) PO SCH (06:23)
[2020-01-19 06:28] VITALS: BP 140/68
[2020-01-19] MEDS: metFORMIN XR 500MG TAB *GLUCOPHAGE XR PO SCH ×2 (07:28→18:09)
[2020-01-19] MEDS: SENOKOT S TAB PO SCH (09:00)
[2020-01-19] MEDS: ARIPiprazole 15 MG TAB (AbiLIFY) PO SCH ×2 (09:58→21:15)
[2020-01-19] MEDS: PROPRANOLOL 10 MG TAB PO SCH ×3 (09:59→21:16)
[2020-01-19] MEDS: ATORVASTATIN 20 MG TAB PO SCH (09:59)
[2020-01-19] MEDS: LOSARTAN 25 MG TAB PO SCH (09:59)
--- NOTE | 2020-01-19 14:48 | MHIPNPDOC ---
[facility] Progress Note Progress Note DATE OF SERVICE: 01/19/20 Subjective HPI: Rachid presents today for concerns regarding his psych issues. Patient was met with today and reports that he is doing good. Denies any gastrointestinal issues, fevers or cough. States that the voices that he has been hearing for 30 years are almost gone. Denies any suicidal or homicidal thoughts. MEDICATIONS: Reports that the increased dose of clozapine has been working for him. Objective Appearance: Appears to be stated age. Well groomed. Well nourished. Behavior: Cooperative with good eye contact. Pleasant. Engaged. Affect: Full range. Appropriate to context. More active. Mood: Appropriately reactive. Euthymic. Generally good. Cognition: Alert, Attentive, and Oriented to person, place, time. Appears to be improving. Thought Form: Linear and goal directed. Thought Content: No thoughts of self harm. No evidence of delusions. No evidence of aggressive or homicidal ideation. Voices nearly gone. No evidence of suicidal ideation. Judgement: Intact as evidenced by decision making in the recent past. Logical. Assessment R44.0 Auditory hallucinations F20.9 Schizophrenia, unspecified Plan Patient reported that he was lonely. Advised him to join some group, however, he denied. Continue Clozaril 50 mg nightly and Abilify. Added bowel prophylaxis. Vital Signs Vital Signs Date Time Temp Pulse Resp B/P (MAP) Pulse Ox O2 Delivery O2 Flow Rate FiO2 01/19/20 09:59 96 132/84 01/19/20 06:28 97.8 18 01/18/20 06:01 94 01/16/20 06:35 Room Air Laboratory Data 24H Labs Laboratory Tests 2 01/18/20 17:20: Bedside Glucose (Misc Panel) 101 01/19/20 06:25: Bedside Glucose (Misc Panel) 133H Current Medications Current Medications Medications (Trade) Dose Ordered Sig/Vaishnavi Route PRN Reason Start Time Stop Time Status Last Admin Dose Admin Acetaminophen (Tylenol Tab) 650 mg Q6HP PRN PO HEADACHE or DISCOMFORT 12/26/19 18:30 Cancel Al Hydrox/Mg Hydrox/Simethicone (Mylanta) 30 ml Q4HP PRN PO HEARTBURN/INDIGESTION 12/26/19 18:30 Aripiprazole (AbiLIFY) 15 mg BID PO 12/26/19 21:00 01/19/20 09:58 Atorvastatin Calcium (Lipitor) 20 mg DAILY PO 12/27/19 09:00 01/19/20 09:59 Clozapine (Clozaril) 12.5 mg QHS PO 01/12/20 21:00 01/13/20 17:10 DC 01/12/20 21:57 Clozapine (Clozaril) 25 mg QHS PO 01/13/20 21:00 01/18/20 11:26 DC 01/17/20 20:57 Clozapine (Clozaril) 50 mg QHS PO 01/18/20 21:00 01/18/20 21:33 Diphenhydramine HCl (Benadryl) 50 mg TID PRN PO ANXIETY/AGITATION 12/26/19 20:00 01/14/20 01:06 Haloperidol (Haldol) 20 mg QHS PO 12/26/19 21:00 01/18/20 21:33 Home Med (Med Rec Complete!) ASDIRECTED XX 12/26/19 19:00 12/26/19 18:55 DC Ibuprofen (Advil) 600 mg TID PRN PO PAIN 12/26/19 20:00 01/17/20 20:59 Levothyroxine Sodium (Synthroid) 25 mcg DAILY@0600 PO 12/27/19 06:00 01/19/20 06:23 Losartan Potassium (Cozaar) 25 mg DAILY PO 12/27/19 09:00 01/19/20 09:59 Magnesium Hydroxide (Milk Of Magnesia) 30 ml DAILYPRN PRN PO CONSTIPATION 12/26/19 18:30 Metformin HCl (Glucophage Xr) 500 mg BID@0800,1800 PO 12/26/19 18:00 01/19/20 07:28 Miscellaneous (Unresolved Clarification Entry) SEE LABEL COMMENTS DAILY XX 01/15/20 09:00 01/15/20 14:36 DC Non-Formulary Medication ( See Comment Field Below ) SEE COMMENTS SECTION 1T@10 XX 01/07/20 10:00 01/05/20 12:33 DC Non-Formulary Medication ( See Comment Field Below ) SEE COMMENTS SECTION DAILY@1000 XX 01/09/20 10:00 01/10/20 09:59 DC Non-Formulary Medication ( See Comment Field Below ) SEE LABEL COMMENTS DAILY XX 01/05/20 09:00 01/05/20 13:42 DC Non-Formulary Medication ( See Comment Field Below ) SEE LABEL COMMENTS DAILY XX 01/06/20 09:00 01/07/20 11:04 DC Propranolol HCl (Inderal) 10 mg TID PO 12/26/19 21:00 01/19/20 09:59 Trazodone HCl (Desyrel) 50 mg QHSP PRN PO INSOMNIA 12/26/19 18:30 Cancel Zolpidem Tartrate (Ambien) 10 mg QHSP PRN PO Insomnia 12/26/19 20:00 01/02/20 19:59 DC 01/01/20 20:51 Zolpidem Tartrate (Ambien) 10 mg QHSP PRN PO Insomnia 01/08/20 23:00 01/18/20 21:35 Allergies Coded Allergies: No Known Allergies (Unverified , 12/26/19) MO KEYES DO Jan 19, 2020 14:48
[2020-01-19 16:16] VITALS: BP 136/86
[2020-01-19] MEDS: cloZAPine 25 MG TAB (S0136) PO SCH (21:15)
[2020-01-19] MEDS: zolPIDEM TARTRATE 5 MG TAB PO PRN (21:16)
[2020-01-20] MEDS: diphenhydrAMINE 50MG CAP PO PRN (00:53)
[2020-01-20 06:11] VITALS: BP 142/98
[2020-01-20] MEDS: LEVOTHYROXINE 25MCG TABLET (0.025MG) PO SCH (06:28)
[2020-01-20] MEDS: metFORMIN XR 500MG TAB *GLUCOPHAGE XR PO SCH ×2 (07:36→17:14)
[2020-01-20] MEDS: SENOKOT S TAB PO SCH (09:00)
[2020-01-20] MEDS: ARIPiprazole 15 MG TAB (AbiLIFY) PO SCH ×2 (09:44→21:13)
[2020-01-20] MEDS: ATORVASTATIN 20 MG TAB PO SCH (09:44)
[2020-01-20] MEDS: PROPRANOLOL 10 MG TAB PO SCH ×3 (09:44→21:14)
[2020-01-20] MEDS: LOSARTAN 25 MG TAB PO SCH (09:44)
--- NOTE | 2020-01-20 09:44 | MHIPNPDOC ---
[facility] Progress Note Progress Note DATE OF SERVICE: 01/20/20 Subjective HPI: The patient is attempted to be met with today, however, he is very tired today. Although he didnt awaken for the initial visit, he was known to be walking around in no acute distress. He still answers in yes & no answers with very little detail given. However, he still has reportedly been telling nurses that hes been improving. Objective Appearance: Hygiene fair. Behavior: Pleasant. Cooperative with good eye contact. Engaged. Motor: More active. Sedation not present on 2nd interview. Thought Content: No evidence of suicidal ideation. No evidence of delusions. No evidence of aggressive or homicidal ideation. No thoughts of self harm. Judgement: Appear to be improving. Insight: Appear to be improving. Assessment Plan Continue Clozapine with bowel prophylaxis 50 mg. CBC within normal limits. Making some improvements. Will see about triaging back to [facility] as hes made good progress. Vital Signs Vital Signs Date Time Temp Pulse Resp B/P (MAP) Pulse Ox O2 Delivery O2 Flow Rate FiO2 01/20/20 06:11 97.6 86 18 142/98 (113) 01/18/20 06:01 94 01/16/20 06:35 Room Air Laboratory Data 24H Labs Laboratory Tests 2 01/19/20 16:56: Bedside Glucose (Misc Panel) 115H 01/20/20 06:28: Bedside Glucose (Misc Panel) 123H Current Medications Current Medications Medications (Trade) Dose Ordered Sig/Vaishnavi Route PRN Reason Start Time Stop Time Status Last Admin Dose Admin Acetaminophen (Tylenol Tab) 650 mg Q6HP PRN PO HEADACHE or DISCOMFORT 12/26/19 18:30 Cancel Al Hydrox/Mg Hydrox/Simethicone (Mylanta) 30 ml Q4HP PRN PO HEARTBURN/INDIGESTION 12/26/19 18:30 Aripiprazole (AbiLIFY) 15 mg BID PO 12/26/19 21:00 01/19/20 21:15 Atorvastatin Calcium (Lipitor) 20 mg DAILY PO 12/27/19 09:00 01/19/20 09:59 Clozapine (Clozaril) 12.5 mg QHS PO 01/12/20 21:00 01/13/20 17:10 DC 01/12/20 21:57 Clozapine (Clozaril) 25 mg QHS PO 01/13/20 21:00 01/18/20 11:26 DC 01/17/20 20:57 Clozapine (Clozaril) 50 mg QHS PO 01/18/20 21:00 01/19/20 21:15 Diphenhydramine HCl (Benadryl) 50 mg TID PRN PO ANXIETY/AGITATION 12/26/19 20:00 01/20/20 00:53 Haloperidol (Haldol) 20 mg QHS PO 12/26/19 21:00 01/19/20 21:15 Home Med (Med Rec Complete!) ASDIRECTED XX 12/26/19 19:00 12/26/19 18:55 DC Ibuprofen (Advil) 600 mg TID PRN PO PAIN 12/26/19 20:00 01/17/20 20:59 Levothyroxine Sodium (Synthroid) 25 mcg DAILY@0600 PO 12/27/19 06:00 01/20/20 06:28 Losartan Potassium (Cozaar) 25 mg DAILY PO 12/27/19 09:00 01/19/20 09:59 Magnesium Hydroxide (Milk Of Magnesia) 30 ml DAILYPRN PRN PO CONSTIPATION 12/26/19 18:30 Metformin HCl (Glucophage Xr) 500 mg BID@0800,1800 PO 12/26/19 18:00 01/20/20 07:36 Miscellaneous (Unresolved Clarification Entry) SEE LABEL COMMENTS DAILY XX 01/15/20 09:00 01/15/20 14:36 DC Non-Formulary Medication ( See Comment Field Below ) SEE COMMENTS SECTION 1T@10 XX 01/07/20 10:00 01/05/20 12:33 DC Non-Formulary Medication ( See Comment Field Below ) SEE COMMENTS SECTION DAILY@1000 XX 01/09/20 10:00 01/10/20 09:59 DC Non-Formulary Medication ( See Comment Field Below ) SEE LABEL COMMENTS DAILY XX 01/05/20 09:00 01/05/20 13:42 DC Non-Formulary Medication ( See Comment Field Below ) SEE LABEL COMMENTS DAILY XX 01/06/20 09:00 01/07/20 11:04 DC Propranolol HCl (Inderal) 10 mg TID PO 12/26/19 21:00 01/19/20 21:16 Senna/Docusate Sodium (Senokot S) 1 tab DAILY PO 01/19/20 09:00 Trazodone HCl (Desyrel) 50 mg QHSP PRN PO INSOMNIA 12/26/19 18:30 Cancel Zolpidem Tartrate (Ambien) 10 mg QHSP PRN PO Insomnia 12/26/19 20:00 01/02/20 19:59 DC 01/01/20 20:51 Zolpidem Tartrate (Ambien) 10 mg QHSP PRN PO Insomnia 01/08/20 23:00 01/19/20 21:16 Allergies Coded Allergies: No Known Allergies (Unverified , 12/26/19) MO KEYES DO Jan 20, 2020 09:44
[2020-01-20 15:58] VITALS: BP 148/80
[2020-01-20] MEDS: cloZAPine 25 MG TAB (S0136) PO SCH (21:13)
[2020-01-20] MEDS: zolPIDEM TARTRATE 5 MG TAB PO PRN (21:13)
[2020-01-21] MEDS: LEVOTHYROXINE 25MCG TABLET (0.025MG) PO SCH (06:06)
[2020-01-21 06:52] VITALS: BP 148/90
[2020-01-21] MEDS: SENOKOT S TAB PO SCH (09:00)
[2020-01-21] MEDS: LOSARTAN 25 MG TAB PO SCH (09:13)
[2020-01-21] MEDS: ARIPiprazole 15 MG TAB (AbiLIFY) PO SCH ×2 (09:14→21:53)
[2020-01-21] MEDS: metFORMIN XR 500MG TAB *GLUCOPHAGE XR PO SCH ×2 (09:15→18:10)
[2020-01-21] MEDS: PROPRANOLOL 10 MG TAB PO SCH ×3 (09:15→21:54)
[2020-01-21] MEDS: ATORVASTATIN 20 MG TAB PO SCH (09:15)
--- NOTE | 2020-01-21 09:28 | MHIPNPDOC ---
[facility] Progress Note Progress Note DATE OF SERVICE: 01/21/20 Subjective HPI: Rachid was attempted to be seen today, however, hes quite sedated on observation. He has notably been more active, but still has significant di fficulties with falling asleep suddenly and being very difficult to arouse. He was sleeping comfortable breathing well in no acute distress, however, very difficult to awaken and sleepy during morning. He continues to refuse the colloids, but has had no notable troubles with bowel movements as per the nursing staff, who continues to monitor him. TESTS: CBC is within normal limits and EKG will be done soon. Objective Appearance: Well groomed. No acute distress. Well nourished. Appears to be stated age. Behavior: Cooperative with good eye contact. Engaged. When patient is wake, he appears to be talking to various unseen others. Reportedly, the nursing staff said he was holding court in the middle of the night talking to various unseen others. Pleasant. Assessment F20.9 Schizophrenia, unspecified Plan Increased dose of Clozapine to 25 mg daily and 50 mg at night. Prescribed Modafinil 15 mg in the morning, to improve his awakeness. Referred patient to long-term care at [place] as he is still far from his [facility], reportedly. Vital Signs Vital Signs Date Time Temp Pulse Resp B/P (MAP) Pulse Ox O2 Delivery O2 Flow Rate FiO2 01/21/20 09:15 81 148/90 01/21/20 08:21 Room Air 01/21/20 06:52 97.5 15 92 Laboratory Data 24H Labs Laboratory Tests 2 01/20/20 17:12: Bedside Glucose (Misc Panel) 135H 01/21/20 06:22: Bedside Glucose (Misc Panel) 125H Current Medications Current Medications Medications (Trade) Dose Ordered Sig/Vaishnavi Route PRN Reason Start Time Stop Time Status Last Admin Dose Admin Acetaminophen (Tylenol Tab) 650 mg Q6HP PRN PO HEADACHE or DISCOMFORT 12/26/19 18:30 Cancel Al Hydrox/Mg Hydrox/Simethicone (Mylanta) 30 ml Q4HP PRN PO HEARTBURN/INDIGESTION 12/26/19 18:30 Aripiprazole (AbiLIFY) 15 mg BID PO 12/26/19 21:00 01/21/20 09:14 Atorvastatin Calcium (Lipitor) 20 mg DAILY PO 12/27/19 09:00 01/21/20 09:15 Clozapine (Clozaril) 12.5 mg QHS PO 01/12/20 21:00 01/13/20 17:10 DC 01/12/20 21:57 Clozapine (Clozaril) 25 mg QHS PO 01/13/20 21:00 01/18/20 11:26 DC 01/17/20 20:57 Clozapine (Clozaril) 50 mg QHS PO 01/18/20 21:00 01/20/20 21:13 Diphenhydramine HCl (Benadryl) 50 mg TID PRN PO ANXIETY/AGITATION 12/26/19 20:00 01/20/20 00:53 Haloperidol (Haldol) 20 mg QHS PO 12/26/19 21:00 01/20/20 21:13 Home Med (Med Rec Complete!) ASDIRECTED XX 12/26/19 19:00 12/26/19 18:55 DC Ibuprofen (Advil) 600 mg TID PRN PO PAIN 12/26/19 20:00 01/17/20 20:59 Levothyroxine Sodium (Synthroid) 25 mcg DAILY@0600 PO 12/27/19 06:00 01/21/20 06:06 Losartan Potassium (Cozaar) 25 mg DAILY PO 12/27/19 09:00 01/21/20 09:13 Magnesium Hydroxide (Milk Of Magnesia) 30 ml DAILYPRN PRN PO CONSTIPATION 12/26/19 18:30 Metformin HCl (Glucophage Xr) 500 mg BID@0800,1800 PO 12/26/19 18:00 01/21/20 09:15 Miscellaneous (Unresolved Clarification Entry) SEE LABEL COMMENTS DAILY XX 01/15/20 09:00 01/15/20 14:36 DC Non-Formulary Medication ( See Comment Field Below ) SEE COMMENTS SECTION 1T@10 XX 01/07/20 10:00 01/05/20 12:33 DC Non-Formulary Medication ( See Comment Field Below ) SEE COMMENTS SECTION DAILY@1000 XX 01/09/20 10:00 01/10/20 09:59 DC Non-Formulary Medication ( See Comment Field Below ) SEE LABEL COMMENTS DAILY XX 01/05/20 09:00 01/05/20 13:42 DC Non-Formulary Medication ( See Comment Field Below ) SEE LABEL COMMENTS DAILY XX 01/06/20 09:00 01/07/20 11:04 DC Propranolol HCl (Inderal) 10 mg TID PO 12/26/19 21:00 01/21/20 09:15 Senna/Docusate Sodium (Senokot S) 1 tab DAILY PO 01/19/20 09:00 Trazodone HCl (Desyrel) 50 mg QHSP PRN PO INSOMNIA 12/26/19 18:30 Cancel Zolpidem Tartrate (Ambien) 10 mg QHSP PRN PO Insomnia 12/26/19 20:00 01/02/20 19:59 DC 01/01/20 20:51 Zolpidem Tartrate (Ambien) 10 mg QHSP PRN PO Insomnia 01/08/20 23:00 01/20/20 21:13 Allergies Coded Allergies: No Known Allergies (Unverified , 12/26/19) MO KEYES DO Jan 21, 2020 09:28
[2020-01-21] MEDS: cloZAPine 25 MG TAB (S0136) PO SCH ×2 (11:13→21:53)
[2020-01-21] MEDS: PILL CUTTER 1 EACH XX PRN (11:14)
[2020-01-21] MEDS: MODAFINIL 100 MG TABLET PO SCH (11:14)
[2020-01-21 18:16] VITALS: BP 145/77
[2020-01-22] MEDS: diphenhydrAMINE 50MG CAP PO PRN (03:45)
[2020-01-22] MEDS: LEVOTHYROXINE 25MCG TABLET (0.025MG) PO SCH (06:11)
[2020-01-22 06:51] VITALS: BP 150/89
[2020-01-22] MEDS: SENOKOT S TAB PO SCH (09:00)
[2020-01-22] MEDS: PROPRANOLOL 10 MG TAB PO SCH ×3 (09:40→20:53)
[2020-01-22] MEDS: metFORMIN XR 500MG TAB *GLUCOPHAGE XR PO SCH ×2 (09:40→17:07)
[2020-01-22] MEDS: ARIPiprazole 15 MG TAB (AbiLIFY) PO SCH ×2 (09:40→20:53)
[2020-01-22] MEDS: MODAFINIL 100 MG TABLET PO SCH (09:41)
[2020-01-22] MEDS: ATORVASTATIN 20 MG TAB PO SCH (09:41)
[2020-01-22] MEDS: LOSARTAN 25 MG TAB PO SCH (09:43)
[2020-01-22] MEDS: cloZAPine 25 MG TAB (S0136) PO SCH ×2 (09:43→20:54)
--- NOTE | 2020-01-22 10:08 | MHIPNPDOC ---
[facility] Progress Note Progress Note DATE OF SERVICE: 01/22/20 Subjective HPI: the patient was attempted to be met with again, he was quite tired during the daytime sleeping in the chair, he did awaken later and he was met with briefly, he reports that he still has difficulty sleeping, but prefers sleeping in the chair. He reports he stays up all night. He reports he feels the medicines helping and denies any constipation. TESTS: CBC is within normal limits and EKG will be done soon. Objective Appearance: Well groomed. No acute distress. Well nourished. Appears to be stated age. Behavior: Cooperative with good eye contact. Engaged. When patient is wake, he appears to be talking to various unseen others. . Pleasant.however, appears tangential at times and response to unseen others. Assessment F20.9 Schizophrenia, unspecified Plan continue dose of Clozapine to 25 mg daily and 50 mg at night. continue Modafinil 50 mg in the morning, to improve his awakeness. Referred patient to long-term care at [place] as he is still far from his baseline, reportedly. Vital Signs Vital Signs Date Time Temp Pulse Resp B/P (MAP) Pulse Ox O2 Delivery O2 Flow Rate FiO2 01/22/20 09:43 154/98 01/22/20 09:40 94 01/22/20 06:51 97.1 20 Room Air 01/21/20 06:52 92 Laboratory Data 24H Labs Laboratory Tests 2 01/22/20 06:14: Bedside Glucose (Misc Panel) 117H Current Medications Current Medications Medications (Trade) Dose Ordered Sig/Vaishnavi Route PRN Reason Start Time Stop Time Status Last Admin Dose Admin Acetaminophen (Tylenol Tab) 650 mg Q6HP PRN PO HEADACHE or DISCOMFORT 12/26/19 18:30 Cancel Al Hydrox/Mg Hydrox/Simethicone (Mylanta) 30 ml Q4HP PRN PO HEARTBURN/INDIGESTION 12/26/19 18:30 Aripiprazole (AbiLIFY) 15 mg BID PO 12/26/19 21:00 01/22/20 09:40 Atorvastatin Calcium (Lipitor) 20 mg DAILY PO 12/27/19 09:00 01/22/20 09:41 Clozapine (Clozaril) 12.5 mg QHS PO 01/12/20 21:00 01/13/20 17:10 DC 01/12/20 21:57 Clozapine (Clozaril) 25 mg DAILY PO 01/21/20 09:00 01/22/20 09:43 Clozapine (Clozaril) 25 mg QHS PO 01/13/20 21:00 01/18/20 11:26 DC 01/17/20 20:57 Clozapine (Clozaril) 50 mg QHS PO 01/18/20 21:00 01/21/20 21:53 Diphenhydramine HCl (Benadryl) 50 mg TID PRN PO ANXIETY/AGITATION 12/26/19 20:00 01/22/20 03:45 Haloperidol (Haldol) 20 mg QHS PO 12/26/19 21:00 01/21/20 21:53 Home Med (Med Rec Complete!) ASDIRECTED XX 12/26/19 19:00 12/26/19 18:55 DC Ibuprofen (Advil) 600 mg TID PRN PO PAIN 12/26/19 20:00 01/17/20 20:59 Levothyroxine Sodium (Synthroid) 25 mcg DAILY@0600 PO 12/27/19 06:00 01/22/20 06:11 Losartan Potassium (Cozaar) 25 mg DAILY PO 12/27/19 09:00 01/22/20 09:43 Magnesium Hydroxide (Milk Of Magnesia) 30 ml DAILYPRN PRN PO CONSTIPATION 12/26/19 18:30 Metformin HCl (Glucophage Xr) 500 mg BID@0800,1800 PO 12/26/19 18:00 01/22/20 09:40 Miscellaneous (Unresolved Clarification Entry) SEE LABEL COMMENTS DAILY XX 01/15/20 09:00 01/15/20 14:36 DC Modafinil (Provigil) 50 mg DAILY PO 01/21/20 09:00 01/22/20 09:41 Non-Formulary Medication ( See Comment Field Below ) SEE COMMENTS SECTION 1T@10 XX 01/07/20 10:00 01/05/20 12:33 DC Non-Formulary Medication ( See Comment Field Below ) SEE COMMENTS SECTION DAILY@1000 XX 01/09/20 10:00 01/10/20 09:59 DC Non-Formulary Medication ( See Comment Field Below ) SEE LABEL COMMENTS DAILY XX 01/05/20 09:00 01/05/20 13:42 DC Non-Formulary Medication ( See Comment Field Below ) SEE LABEL COMMENTS DAILY XX 01/06/20 09:00 01/07/20 11:04 DC Propranolol HCl (Inderal) 10 mg TID PO 12/26/19 21:00 01/22/20 09:40 Senna/Docusate Sodium (Senokot S) 1 tab DAILY PO 01/19/20 09:00 Trazodone HCl (Desyrel) 50 mg QHSP PRN PO INSOMNIA 12/26/19 18:30 Cancel Zolpidem Tartrate (Ambien) 10 mg QHSP PRN PO Insomnia 12/26/19 20:00 01/02/20 19:59 DC 01/01/20 20:51 Zolpidem Tartrate (Ambien) 10 mg QHSP PRN PO Insomnia 01/08/20 23:00 01/20/20 21:13 Allergies Coded Allergies: No Known Allergies (Unverified , 12/26/19) MO KEYES DO Jan 22, 2020 10:08
--- NOTE | 2020-01-22 10:34 | ECGEPIP ---
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
[2020-01-22 16:14] VITALS: BP 149/96
[2020-01-22] MEDS: zolPIDEM TARTRATE 5 MG TAB PO PRN (21:08)
[2020-01-23] MEDS: LEVOTHYROXINE 25MCG TABLET (0.025MG) PO SCH (06:03)
[2020-01-23 06:25] VITALS: BP 151/81
[2020-01-23] MEDS: SENOKOT S TAB PO SCH (09:00)
[2020-01-23] MEDS: PILL CUTTER 1 EACH XX PRN (09:03)
[2020-01-23] MEDS: MODAFINIL 100 MG TABLET PO SCH (09:03)
[2020-01-23] MEDS: cloZAPine 25 MG TAB (S0136) PO SCH ×2 (09:03→20:50)
[2020-01-23] MEDS: metFORMIN XR 500MG TAB *GLUCOPHAGE XR PO SCH ×2 (09:04→17:12)
[2020-01-23] MEDS: LOSARTAN 25 MG TAB PO SCH (09:05)
[2020-01-23] MEDS: PROPRANOLOL 10 MG TAB PO SCH ×3 (09:05→20:49)
[2020-01-23] MEDS: ARIPiprazole 15 MG TAB (AbiLIFY) PO SCH ×2 (09:06→20:50)
[2020-01-23] MEDS: ATORVASTATIN 20 MG TAB PO SCH (09:06)
[2020-01-23 16:13] VITALS: BP 140/88
[2020-01-23] MEDS: diphenhydrAMINE 50MG CAP PO PRN (20:49)
[2020-01-23] MEDS: zolPIDEM TARTRATE 5 MG TAB PO PRN (20:50)
[2020-01-24] MEDS: diphenhydrAMINE 50MG CAP PO PRN ×3 (03:00→21:15)
[2020-01-24] MEDS: LEVOTHYROXINE 25MCG TABLET (0.025MG) PO SCH (06:06)
[2020-01-24 06:28] VITALS: BP 135/81
[2020-01-24] MEDS: SENOKOT S TAB PO SCH (09:00)
[2020-01-24] MEDS: MODAFINIL 100 MG TABLET PO SCH (09:10)
[2020-01-24] MEDS: metFORMIN XR 500MG TAB *GLUCOPHAGE XR PO SCH ×2 (09:12→17:09)
[2020-01-24] MEDS: LOSARTAN 25 MG TAB PO SCH (09:13)
[2020-01-24] MEDS: ARIPiprazole 15 MG TAB (AbiLIFY) PO SCH ×2 (09:13→21:14)
[2020-01-24] MEDS: PROPRANOLOL 10 MG TAB PO SCH ×3 (09:13→21:15)
[2020-01-24] MEDS: cloZAPine 25 MG TAB (S0136) PO SCH ×2 (09:13→21:14)
[2020-01-24] MEDS: ATORVASTATIN 20 MG TAB PO SCH (09:13)
[2020-01-24 16:19] VITALS: BP 140/87
[2020-01-24] MEDS: zolPIDEM TARTRATE 5 MG TAB PO PRN (21:14)
[2020-01-25] MEDS: LEVOTHYROXINE 25MCG TABLET (0.025MG) PO SCH (05:37)
[2020-01-25 06:13] VITALS: BP 140/94
[2020-01-25] MEDS: metFORMIN XR 500MG TAB *GLUCOPHAGE XR PO SCH ×2 (08:55→17:05)
[2020-01-25] MEDS: ARIPiprazole 15 MG TAB (AbiLIFY) PO SCH ×2 (08:56→21:35)
[2020-01-25] MEDS: cloZAPine 25 MG TAB (S0136) PO SCH ×2 (08:56→21:35)
[2020-01-25] MEDS: LOSARTAN 25 MG TAB PO SCH (08:56)
[2020-01-25] MEDS: ATORVASTATIN 20 MG TAB PO SCH (08:57)
[2020-01-25] MEDS: PROPRANOLOL 10 MG TAB PO SCH ×3 (08:57→21:39)
[2020-01-25] MEDS: MODAFINIL 100 MG TABLET PO SCH (08:58)
[2020-01-25] MEDS: SENOKOT S TAB PO SCH (08:59)
[2020-01-25 17:41] VITALS: BP 141/68
[2020-01-25] MEDS: diphenhydrAMINE 50MG CAP PO PRN (21:35)
[2020-01-25] MEDS: zolPIDEM TARTRATE 5 MG TAB PO PRN (21:35)
[2020-01-26] MEDS: LEVOTHYROXINE 25MCG TABLET (0.025MG) PO SCH (05:06)
[2020-01-26 06:23] VITALS: BP 146/76
[2020-01-26] MEDS: PILL CUTTER 1 EACH XX PRN (08:29)
[2020-01-26] MEDS: metFORMIN XR 500MG TAB *GLUCOPHAGE XR PO SCH ×2 (08:30→17:33)
[2020-01-26] MEDS: cloZAPine 25 MG TAB (S0136) PO SCH ×2 (08:31→21:30)
[2020-01-26] MEDS: ARIPiprazole 15 MG TAB (AbiLIFY) PO SCH ×2 (08:31→21:30)
[2020-01-26] MEDS: LOSARTAN 25 MG TAB PO SCH (08:31)
[2020-01-26] MEDS: MODAFINIL 100 MG TABLET PO SCH (08:32)
[2020-01-26] MEDS: ATORVASTATIN 20 MG TAB PO SCH (08:32)
[2020-01-26] MEDS: PROPRANOLOL 10 MG TAB PO SCH ×3 (08:32→21:29)
[2020-01-26] MEDS: SENOKOT S TAB PO SCH (08:35)
--- NOTE | 2020-01-26 09:24 | MHIPNPDOC ---
[facility] Progress Note Progress Note DATE OF SERVICE: 01/26/20 Subjective HPI: Patient was met with in the office for a follow up. He reports that he couldnt sleep last night, but is happy that he has a chair. He reports that he sleeps much better in chairs. Significant thought blocking is present. He denies any constipation, appears quite concrete. He notes that he is tied, but was much more amenable today to meeting. Usually, he will not get up to meet with me. He reports the voices are nearly gone since starting the Clozaril and does not report any other problems. Objective Appearance: Well groomed. Well nourished. Appears to be stated age. Affect: Doesnt appear to be responding to internal stimuli. Flat. Cognition: Somewhat slowed. Alert, Attentive, and Oriented to person, place, time. Thought Form: Siginificant thought blocking present with some negative symptoms. Judgement: Mildly improved. Insight: Mildly improved. Assessment F20.9 Schizophrenia, unspecified Plan Continue Clozapine at current dose, no signs of adverse effects. Will continue Prophylaxis. CBC and EKG to be redrawn shortly. Referral in process for [facility] psychiatric as he is an [facility] resident. He will likely need long-term treatment as he appears still quite impaired with a significant amount of thought blocking. Vital Signs Vital Signs Date Time Temp Pulse Resp B/P (MAP) Pulse Ox O2 Delivery O2 Flow Rate FiO2 01/26/20 08:32 69 146/76 01/26/20 06:23 98.2 18 96 Room Air Laboratory Data 24H Labs Laboratory Tests 2 01/26/20 05:34: Bedside Glucose (Misc Panel) 120H Current Medications Current Medications Medications (Trade) Dose Ordered Sig/Vaishnavi Route PRN Reason Start Time Stop Time Status Last Admin Dose Admin Acetaminophen (Tylenol Tab) 650 mg Q6HP PRN PO HEADACHE or DISCOMFORT 12/26/19 18:30 Cancel Al Hydrox/Mg Hydrox/Simethicone (Mylanta) 30 ml Q4HP PRN PO HEARTBURN/INDIGESTION 12/26/19 18:30 Aripiprazole (AbiLIFY) 15 mg BID PO 12/26/19 21:00 01/26/20 08:31 Atorvastatin Calcium (Lipitor) 20 mg DAILY PO 12/27/19 09:00 01/26/20 08:32 Clozapine (Clozaril) 12.5 mg QHS PO 01/12/20 21:00 01/13/20 17:10 DC 01/12/20 21:57 Clozapine (Clozaril) 25 mg DAILY PO 01/21/20 09:00 01/26/20 08:31 Clozapine (Clozaril) 25 mg QHS PO 01/13/20 21:00 01/18/20 11:26 DC 01/17/20 20:57 Clozapine (Clozaril) 50 mg QHS PO 01/18/20 21:00 01/25/20 21:35 Diphenhydramine HCl (Benadryl) 50 mg TID PRN PO ANXIETY/AGITATION 12/26/19 20:00 01/25/20 21:35 Haloperidol (Haldol) 20 mg QHS PO 12/26/19 21:00 01/25/20 21:34 Home Med (Med Rec Complete!) ASDIRECTED XX 12/26/19 19:00 12/26/19 18:55 DC Ibuprofen (Advil) 600 mg TID PRN PO PAIN 12/26/19 20:00 01/17/20 20:59 Levothyroxine Sodium (Synthroid) 25 mcg DAILY@0600 PO 12/27/19 06:00 01/26/20 05:06 Losartan Potassium (Cozaar) 25 mg DAILY PO 12/27/19 09:00 01/26/20 08:31 Magnesium Hydroxide (Milk Of Magnesia) 30 ml DAILYPRN PRN PO CONSTIPATION 12/26/19 18:30 Metformin HCl (Glucophage Xr) 500 mg BID@0800,1800 PO 12/26/19 18:00 01/26/20 08:30 Miscellaneous (Unresolved Clarification Entry) SEE LABEL COMMENTS DAILY XX 01/15/20 09:00 01/15/20 14:36 DC Miscellaneous (Unresolved Clarification Entry) SEE LABEL COMMENTS DAILY XX 01/24/20 09:00 01/25/20 15:47 DC Modafinil (Provigil) 50 mg DAILY PO 01/21/20 09:00 01/26/20 08:32 Non-Formulary Medication ( See Comment Field Below ) SEE COMMENTS SECTION 1T@10 XX 01/07/20 10:00 01/05/20 12:33 DC Non-Formulary Medication ( See Comment Field Below ) SEE COMMENTS SECTION DAILY@1000 XX 01/09/20 10:00 01/10/20 09:59 DC Non-Formulary Medication ( See Comment Field Below ) SEE LABEL COMMENTS DAILY XX 01/05/20 09:00 01/05/20 13:42 DC Non-Formulary Medication ( See Comment Field Below ) SEE LABEL COMMENTS DAILY XX 01/06/20 09:00 01/07/20 11:04 DC Propranolol HCl (Inderal) 10 mg TID PO 12/26/19 21:00 01/26/20 08:32 Senna/Docusate Sodium (Senokot S) 1 tab DAILY PO 01/19/20 09:00 Trazodone HCl (Desyrel) 50 mg QHSP PRN PO INSOMNIA 12/26/19 18:30 Cancel Zolpidem Tartrate (Ambien) 10 mg QHSP PRN PO Insomnia 12/26/19 20:00 01/02/20 19:59 DC 01/01/20 20:51 Zolpidem Tartrate (Ambien) 10 mg QHSP PRN PO INSOMNIA 01/22/20 21:15 01/25/20 21:35 Zolpidem Tartrate (Ambien) 10 mg QHSP PRN PO Insomnia 01/08/20 23:00 01/22/20 13:49 DC 01/20/20 21:13 Allergies Coded Allergies: No Known Allergies (Unverified , 12/26/19) MO KEYES DO Jan 26, 2020 09:24
[2020-01-26 18:05] VITALS: BP 131/74
[2020-01-26] MEDS: zolPIDEM TARTRATE 5 MG TAB PO PRN (21:29)
[2020-01-27] MEDS: LEVOTHYROXINE 25MCG TABLET (0.025MG) PO SCH (06:08)
[2020-01-27 06:48] VITALS: BP 137/94
[2020-01-27] MEDS: cloZAPine 25 MG TAB (S0136) PO SCH ×2 (08:19→21:12)
[2020-01-27] MEDS: ARIPiprazole 15 MG TAB (AbiLIFY) PO SCH ×2 (08:20→21:12)
[2020-01-27] MEDS: PROPRANOLOL 10 MG TAB PO SCH ×3 (08:20→21:13)
[2020-01-27] MEDS: metFORMIN XR 500MG TAB *GLUCOPHAGE XR PO SCH ×2 (08:20→17:20)
[2020-01-27] MEDS: MODAFINIL 100 MG TABLET PO SCH (08:20)
[2020-01-27] MEDS: SENOKOT S TAB PO SCH (08:20)
[2020-01-27] MEDS: ATORVASTATIN 20 MG TAB PO SCH (08:20)
[2020-01-27] MEDS: LOSARTAN 25 MG TAB PO SCH (08:21)
--- NOTE | 2020-01-27 09:56 | MHIPNPDOC ---
[facility] Progress Note Progress Note DATE OF SERVICE: 01/27/20 Subjective HPI: Rachid presents today for a follow-up. Patient states his legs feel heavy. He states his suicidal thoughts and hearing voices in his head are getting better.Leaves the interview early as he doesn't want to go to [facility] Objective Thought Form: Distorted. Psychotic. si/hi as above fair hygiene thought blocking present slowed cognition i/j: poor speech: slow affect: flat, little reactivity Assessment F20.9 Schizophrenia, unspecified Plan Continue current medications and Modafinil. Referral in place. Vital Signs Vital Signs Date Time Temp Pulse Resp B/P (MAP) Pulse Ox O2 Delivery O2 Flow Rate FiO2 01/27/20 08:21 137/94 01/27/20 08:20 81 01/27/20 06:48 98.3 18 93 Room Air Laboratory Data 24H Labs Laboratory Tests 2 01/27/20 06:06: Bedside Glucose (Misc Panel) 123H Current Medications Current Medications Medications (Trade) Dose Ordered Sig/Vaishnavi Route PRN Reason Start Time Stop Time Status Last Admin Dose Admin Acetaminophen (Tylenol Tab) 650 mg Q6HP PRN PO HEADACHE or DISCOMFORT 12/26/19 18:30 Cancel Al Hydrox/Mg Hydrox/Simethicone (Mylanta) 30 ml Q4HP PRN PO HEARTBURN/INDIGESTION 12/26/19 18:30 Aripiprazole (AbiLIFY) 15 mg BID PO 12/26/19 21:00 01/27/20 08:20 Atorvastatin Calcium (Lipitor) 20 mg DAILY PO 12/27/19 09:00 01/27/20 08:20 Clozapine (Clozaril) 12.5 mg QHS PO 01/12/20 21:00 01/13/20 17:10 DC 01/12/20 21:57 Clozapine (Clozaril) 25 mg DAILY PO 01/21/20 09:00 01/27/20 08:19 Clozapine (Clozaril) 25 mg QHS PO 01/13/20 21:00 01/18/20 11:26 DC 01/17/20 20:57 Clozapine (Clozaril) 50 mg QHS PO 01/18/20 21:00 01/26/20 21:30 Diphenhydramine HCl (Benadryl) 50 mg TID PRN PO ANXIETY/AGITATION 12/26/19 20:00 9/21/20 21:35 Haloperidol (Haldol) 20 mg QHS PO 12/26/19 21:00 01/26/20 21:29 Home Med (Med Rec Complete!) ASDIRECTED XX 12/26/19 19:00 12/26/19 18:55 DC Ibuprofen (Advil) 600 mg TID PRN PO PAIN 12/26/19 20:00 01/17/20 20:59 Levothyroxine Sodium (Synthroid) 25 mcg DAILY@0600 PO 12/27/19 06:00 01/27/20 06:08 Losartan Potassium (Cozaar) 25 mg DAILY PO 12/27/19 09:00 01/27/20 08:21 Magnesium Hydroxide (Milk Of Magnesia) 30 ml DAILYPRN PRN PO CONSTIPATION 12/26/19 18:30 Metformin HCl (Glucophage Xr) 500 mg BID@0800,1800 PO 12/26/19 18:00 01/27/20 08:20 Miscellaneous (Unresolved Clarification Entry) SEE LABEL COMMENTS DAILY XX 01/15/20 09:00 01/15/20 14:36 DC Miscellaneous (Unresolved Clarification Entry) SEE LABEL COMMENTS DAILY XX 01/24/20 09:00 01/25/20 15:47 DC Modafinil (Provigil) 50 mg DAILY PO 01/21/20 09:00 01/26/20 11:05 DC 01/26/20 08:32 Modafinil (Provigil) 100 mg DAILY PO 01/27/20 09:00 01/27/20 08:20 Non-Formulary Medication ( See Comment Field Below ) SEE COMMENTS SECTION 1T@10 XX 01/07/20 10:00 01/05/20 12:33 DC Non-Formulary Medication ( See Comment Field Below ) SEE COMMENTS SECTION DAILY@1000 XX 01/09/20 10:00 01/10/20 09:59 DC Non-Formulary Medication ( See Comment Field Below ) SEE LABEL COMMENTS DAILY XX 01/05/20 09:00 01/05/20 13:42 DC Non-Formulary Medication ( See Comment Field Below ) SEE LABEL COMMENTS DAILY XX 01/06/20 09:00 01/07/20 11:04 DC Propranolol HCl (Inderal) 10 mg TID PO 12/26/19 21:00 01/27/20 08:20 Senna/Docusate Sodium (Senokot S) 1 tab DAILY PO 01/19/20 09:00 01/27/20 08:20 Trazodone HCl (Desyrel) 50 mg QHSP PRN PO INSOMNIA 12/26/19 18:30 Cancel Zolpidem Tartrate (Ambien) 10 mg QHSP PRN PO Insomnia 12/26/19 20:00 01/02/20 19:59 DC 01/01/20 20:51 Zolpidem Tartrate (Ambien) 10 mg QHSP PRN PO INSOMNIA 01/22/20 21:15 01/26/20 21:29 Zolpidem Tartrate (Ambien) 10 mg QHSP PRN PO Insomnia 01/08/20 23:00 01/22/20 13:49 DC 01/20/20 21:13 Allergies Coded Allergies: No Known Allergies (Unverified , 12/26/19) MO KEYES DO Jan 27, 2020 09:56
[2020-01-27 15:27] VITALS: BP 156/88
[2020-01-27] MEDS: zolPIDEM TARTRATE 5 MG TAB PO PRN (21:15)
[2020-01-28] MEDS: LEVOTHYROXINE 25MCG TABLET (0.025MG) PO SCH (06:10)
[2020-01-28 06:27] VITALS: BP 147/89
[2020-01-28] MEDS: MODAFINIL 100 MG TABLET PO SCH (08:16)
[2020-01-28] MEDS: LOSARTAN 25 MG TAB PO SCH (08:16)
[2020-01-28] MEDS: ARIPiprazole 15 MG TAB (AbiLIFY) PO SCH ×2 (08:16→20:58)
[2020-01-28] MEDS: cloZAPine 25 MG TAB (S0136) PO SCH ×2 (08:16→20:58)
[2020-01-28] MEDS: metFORMIN XR 500MG TAB *GLUCOPHAGE XR PO SCH ×2 (08:17→18:10)
[2020-01-28] MEDS: ATORVASTATIN 20 MG TAB PO SCH (08:17)
[2020-01-28] MEDS: PROPRANOLOL 10 MG TAB PO SCH ×3 (08:17→21:00)
[2020-01-28] MEDS: SENOKOT S TAB PO SCH (08:19)
--- NOTE | 2020-01-28 10:27 | MHIPNPDOC ---
[facility] Progress Note Progress Note DATE OF SERVICE: 01/28/20 Subjective HPI: The patient is attempted be met with today, however he declined, stating that he would meet "after lunch", but then does acknowledge this provider afterwards. He is been notably upset about being referred for long-term care touching psychiatric, although he has had difficulties care for himself, needing to be cleaned up after having involuntary bowel movements. He has not been a danger to himself. Objective General: fair hygiene Speech: fluid Thought processes:, less tangential Thought content: focused on lunch Abstract reasoning, and computation: baseline impaired Description of associations: baseline impaired Description of abnormal or psychotic thoughts: doesn't answer Judgment: baseline Insight: baseline Orientation: [Alert and orientated 3] Recent and remote memory: [Intact] Attention span and concentration: [Intact] Fund of knowledge: [Adequate] Mood: ["okay"] Affect: flat with some thought blocking Assessment schizophrenia Plan Will continue clozapine, as well as other medications, will continue to pursue long-term treatment Vital Signs Vital Signs Date Time Temp Pulse Resp B/P (MAP) Pulse Ox O2 Delivery O2 Flow Rate FiO2 01/28/20 08:17 80 147/89 01/28/20 06:27 97.6 14 Room Air 01/27/20 06:48 93 Laboratory Data 24H Labs Laboratory Tests 2 01/28/20 06:00: Bedside Glucose (Misc Panel) 119H Current Medications Current Medications Medications (Trade) Dose Ordered Sig/Vaishnavi Route PRN Reason Start Time Stop Time Status Last Admin Dose Admin Acetaminophen (Tylenol Tab) 650 mg Q6HP PRN PO HEADACHE or DISCOMFORT 12/26/19 18:30 Cancel Al Hydrox/Mg Hydrox/Simethicone (Mylanta) 30 ml Q4HP PRN PO HEARTBURN/INDIGESTION 12/26/19 18:30 Aripiprazole (AbiLIFY) 15 mg BID PO 12/26/19 21:00 01/28/20 08:16 Atorvastatin Calcium (Lipitor) 20 mg DAILY PO 12/27/19 09:00 01/28/20 08:17 Clozapine (Clozaril) 12.5 mg QHS PO 01/12/20 21:00 01/13/20 17:10 DC 01/12/20 21:57 Clozapine (Clozaril) 25 mg DAILY PO 01/21/20 09:00 01/28/20 08:16 Clozapine (Clozaril) 25 mg QHS PO 01/13/20 21:00 01/18/20 11:26 DC 01/17/20 20:57 Clozapine (Clozaril) 50 mg QHS PO 01/18/20 21:00 01/27/20 21:12 Diphenhydramine HCl (Benadryl) 50 mg TID PRN PO ANXIETY/AGITATION 12/26/19 20:00 01/25/20 21:35 Haloperidol (Haldol) 20 mg QHS PO 12/26/19 21:00 01/27/20 21:12 Home Med (Med Rec Complete!) ASDIRECTED XX 12/26/19 19:00 12/26/19 18:55 DC Ibuprofen (Advil) 600 mg TID PRN PO PAIN 12/26/19 20:00 01/17/20 20:59 Levothyroxine Sodium (Synthroid) 25 mcg DAILY@0600 PO 12/27/19 06:00 01/28/20 06:10 Losartan Potassium (Cozaar) 25 mg DAILY PO 12/27/19 09:00 01/28/20 08:16 Magnesium Hydroxide (Milk Of Magnesia) 30 ml DAILYPRN PRN PO CONSTIPATION 12/26/19 18:30 Metformin HCl (Glucophage Xr) 500 mg BID@0800,1800 PO 12/26/19 18:00 01/28/20 08:17 Miscellaneous (Unresolved Clarification Entry) SEE LABEL COMMENTS DAILY XX 01/15/20 09:00 01/15/20 14:36 DC Miscellaneous (Unresolved Clarification Entry) SEE LABEL COMMENTS DAILY XX 01/24/20 09:00 01/25/20 15:47 DC Modafinil (Provigil) 50 mg DAILY PO 01/21/20 09:00 01/26/20 11:05 DC 01/26/20 08:32 Modafinil (Provigil) 100 mg DAILY PO 01/27/20 09:00 01/28/20 08:16 Non-Formulary Medication ( See Comment Field Below ) SEE COMMENTS SECTION 1T@10 XX 01/07/20 10:00 01/05/20 12:33 DC Non-Formulary Medication ( See Comment Field Below ) SEE COMMENTS SECTION DAILY@1000 XX 01/09/20 10:00 01/10/20 09:59 DC Non-Formulary Medication ( See Comment Field Below ) SEE LABEL COMMENTS DAILY XX 01/05/20 09:00 01/05/20 13:42 DC Non-Formulary Medication ( See Comment Field Below ) SEE LABEL COMMENTS DAILY XX 01/06/20 09:00 01/07/20 11:04 DC Propranolol HCl (Inderal) 10 mg TID PO 12/26/19 21:00 01/28/20 08:17 Senna/Docusate Sodium (Senokot S) 1 tab DAILY PO 01/19/20 09:00 01/27/20 08:20 Trazodone HCl (Desyrel) 50 mg QHSP PRN PO INSOMNIA 12/26/19 18:30 Cancel Zolpidem Tartrate (Ambien) 10 mg QHSP PRN PO Insomnia 12/26/19 20:00 01/02/20 19:59 DC 01/01/20 20:51 Zolpidem Tartrate (Ambien) 10 mg QHSP PRN PO INSOMNIA 01/22/20 21:15 01/27/20 21:15 Zolpidem Tartrate (Ambien) 10 mg QHSP PRN PO Insomnia 01/08/20 23:00 01/22/20 13:49 DC 01/20/20 21:13 Allergies Coded Allergies: No Known Allergies (Unverified , 12/26/19) MO KEYES DO Jan 28, 2020 10:27
[2020-01-28 17:54] VITALS: BP 137/69
[2020-01-28] MEDS: zolPIDEM TARTRATE 5 MG TAB PO PRN (20:58)
[2020-01-29] MEDS: LEVOTHYROXINE 25MCG TABLET (0.025MG) PO SCH (05:56)
[2020-01-29 06:30] VITALS: BP 148/89
[2020-01-29] MEDS: cloZAPine 25 MG TAB (S0136) PO SCH ×2 (08:22→21:03)
[2020-01-29] MEDS: MODAFINIL 100 MG TABLET PO SCH (08:22)
[2020-01-29] MEDS: LOSARTAN 25 MG TAB PO SCH (08:22)
[2020-01-29] MEDS: ARIPiprazole 15 MG TAB (AbiLIFY) PO SCH ×2 (08:22→21:03)
[2020-01-29] MEDS: metFORMIN XR 500MG TAB *GLUCOPHAGE XR PO SCH ×2 (08:23→17:27)
[2020-01-29] MEDS: PROPRANOLOL 10 MG TAB PO SCH ×3 (08:23→21:05)
[2020-01-29] MEDS: ATORVASTATIN 20 MG TAB PO SCH (08:23)
[2020-01-29] MEDS: SENOKOT S TAB PO SCH (08:53)
--- NOTE | 2020-01-29 10:17 | MHIPNPDOC ---
[facility] Progress Note Progress Note DATE OF SERVICE: 01/29/20 Subjective HPI: The patient is attempted to be met with again today, he continues to state that he would meet "after lunch", he then doesn't acknowledge this provider, still quite angry about going to [facility] or even being referred for treatment there. Staff report that he has made some improvement since his admission and is notably less preoccupied and doesn't appear to be talking dosing others as often. Objective General: fair hygiene Speech: fluid Thought processes: linear Thought content: focused on food Abstract reasoning, and computation: baseline Description of associations:, baseline Description of abnormal or psychotic thoughts: makes no threats towards himself or others Judgment:, baseline, poor Insight: baseline poor Orientation: [Alert and orientated 3] Recent and remote memory: [Intact] Attention span and concentration: [Intact] Fund of knowledge: [Adequate] Mood: I want to eat Affect: flat less thought blocking Assessment schizophrenia Plan Plans to continue clozapine her current dose, as well as other medications making some progress, continue bowel prophylaxis, will draw the CBC and EKG referral in process for long-term care, will have behavioral health case manager meet with this provider and patient as well as digital media planner next week Vital Signs Vital Signs Date Time Temp Pulse Resp B/P (MAP) Pulse Ox O2 Delivery O2 Flow Rate FiO2 01/29/20 08:23 72 148/89 01/29/20 06:30 98.3 14 Room Air 01/27/20 06:48 93 Laboratory Data 24H Labs Laboratory Tests 2 01/29/20 06:02: Bedside Glucose (Misc Panel) 126H Current Medications Current Medications Medications (Trade) Dose Ordered Sig/Vaishnavi Route PRN Reason Start Time Stop Time Status Last Admin Dose Admin Acetaminophen (Tylenol Tab) 650 mg Q6HP PRN PO HEADACHE or DISCOMFORT 12/26/19 18:30 Cancel Al Hydrox/Mg Hydrox/Simethicone (Mylanta) 30 ml Q4HP PRN PO HEARTBURN/INDIGESTION 12/26/19 18:30 Aripiprazole (AbiLIFY) 15 mg BID PO 12/26/19 21:00 01/29/20 08:22 Atorvastatin Calcium (Lipitor) 20 mg DAILY PO 12/27/19 09:00 01/29/20 08:23 Clozapine (Clozaril) 12.5 mg QHS PO 01/12/20 21:00 01/13/20 17:10 DC 01/12/20 21:57 Clozapine (Clozaril) 25 mg DAILY PO 01/21/20 09:00 01/29/20 08:22 Clozapine (Clozaril) 25 mg QHS PO 01/13/20 21:00 01/18/20 11:26 DC 01/17/20 20:57 Clozapine (Clozaril) 50 mg QHS PO 01/18/20 21:00 01/28/20 20:58 Diphenhydramine HCl (Benadryl) 50 mg TID PRN PO ANXIETY/AGITATION 12/26/19 20:00 01/25/20 21:35 Haloperidol (Haldol) 20 mg QHS PO 12/26/19 21:00 01/28/20 20:58 Home Med (Med Rec Complete!) ASDIRECTED XX 12/26/19 19:00 12/26/19 18:55 DC Ibuprofen (Advil) 600 mg TID PRN PO PAIN 12/26/19 20:00 01/17/20 20:59 Levothyroxine Sodium (Synthroid) 25 mcg DAILY@0600 PO 12/27/19 06:00 01/29/20 05:56 Losartan Potassium (Cozaar) 25 mg DAILY PO 12/27/19 09:00 01/29/20 08:22 Magnesium Hydroxide (Milk Of Magnesia) 30 ml DAILYPRN PRN PO CONSTIPATION 12/26/19 18:30 Metformin HCl (Glucophage Xr) 500 mg BID@0800,1800 PO 12/26/19 18:00 01/29/20 08:23 Miscellaneous (Unresolved Clarification Entry) SEE LABEL COMMENTS DAILY XX 01/15/20 09:00 01/15/20 14:36 DC Miscellaneous (Unresolved Clarification Entry) SEE LABEL COMMENTS DAILY XX 01/24/20 09:00 01/25/20 15:47 DC Miscellaneous (Unresolved Clarification Entry) SEE LABEL COMMENTS DAILY XX 01/29/20 09:00 Modafinil (Provigil) 50 mg DAILY PO 01/21/20 09:00 01/26/20 11:05 DC 01/26/20 08:32 Modafinil (Provigil) 100 mg DAILY PO 01/27/20 09:00 01/29/20 08:22 Non-Formulary Medication ( See Comment Field Below ) SEE COMMENTS SECTION 1T@10 XX 01/07/20 10:00 01/05/20 12:33 DC Non-Formulary Medication ( See Comment Field Below ) SEE COMMENTS SECTION DAILY@1000 XX 01/09/20 10:00 01/10/20 09:59 DC Non-Formulary Medication ( See Comment Field Below ) SEE LABEL COMMENTS DAILY XX 01/05/20 09:00 01/05/20 13:42 DC Non-Formulary Medication ( See Comment Field Below ) SEE LABEL COMMENTS DAILY XX 01/06/20 09:00 01/07/20 11:04 DC Propranolol HCl (Inderal) 10 mg TID PO 12/26/19 21:00 01/29/20 08:23 Senna/Docusate Sodium (Senokot S) 1 tab DAILY PO 01/19/20 09:00 01/27/20 08:20 Trazodone HCl (Desyrel) 50 mg QHSP PRN PO INSOMNIA 12/26/19 18:30 Cancel Zolpidem Tartrate (Ambien) 10 mg QHSP PRN PO Insomnia 12/26/19 20:00 01/02/20 19:59 DC 01/01/20 20:51 Zolpidem Tartrate (Ambien) 10 mg QHSP PRN PO INSOMNIA 01/22/20 21:15 01/28/20 20:58 Zolpidem Tartrate (Ambien) 10 mg QHSP PRN PO Insomnia 01/08/20 23:00 01/22/20 13:49 DC 01/20/20 21:13 Allergies Coded Allergies: No Known Allergies (Unverified , 12/26/19) MO KEYES DO Jan 29, 2020 10:17
[2020-01-29 18:27] VITALS: BP 143/87
[2020-01-29] MEDS: zolPIDEM TARTRATE 5 MG TAB PO PRN (21:04)
[2020-01-30] MEDS: LEVOTHYROXINE 25MCG TABLET (0.025MG) PO SCH (05:55)
[2020-01-30 06:00] VITALS: BP 142/77
[2020-01-30] MEDS: metFORMIN XR 500MG TAB *GLUCOPHAGE XR PO SCH ×2 (08:59→17:18)
[2020-01-30] MEDS: SENOKOT S TAB PO SCH (09:00)
[2020-01-30] MEDS: MODAFINIL 100 MG TABLET PO SCH (09:03)
[2020-01-30] MEDS: LOSARTAN 25 MG TAB PO SCH (09:03)
[2020-01-30] MEDS: PROPRANOLOL 10 MG TAB PO SCH ×3 (09:04→20:59)
[2020-01-30] MEDS: cloZAPine 25 MG TAB (S0136) PO SCH ×2 (09:04→20:55)
[2020-01-30] MEDS: ARIPiprazole 15 MG TAB (AbiLIFY) PO SCH ×2 (09:04→20:56)
[2020-01-30] MEDS: ATORVASTATIN 20 MG TAB PO SCH (09:04)
[2020-01-30 18:00] VITALS: BP 162/74
[2020-01-30] MEDS: diphenhydrAMINE 50MG CAP PO PRN (20:55)
[2020-01-30] MEDS: zolPIDEM TARTRATE 5 MG TAB PO PRN (20:56)
[2020-01-31] MEDS: LEVOTHYROXINE 25MCG TABLET (0.025MG) PO SCH (05:50)
[2020-01-31 06:43] VITALS: BP 121/70
[2020-01-31 06:59] VITALS: BP 153/93
[2020-01-31] MEDS: IBUPROFEN 600MG TAB PO PRN (08:54)
[2020-01-31] MEDS: LOSARTAN 25 MG TAB PO SCH (08:55)
[2020-01-31] MEDS: cloZAPine 25 MG TAB (S0136) PO SCH ×2 (08:55→21:26)
[2020-01-31] MEDS: MODAFINIL 100 MG TABLET PO SCH (08:56)
[2020-01-31] MEDS: ATORVASTATIN 20 MG TAB PO SCH (08:56)
[2020-01-31] MEDS: PROPRANOLOL 10 MG TAB PO SCH ×3 (08:56→21:26)
[2020-01-31] MEDS: ARIPiprazole 15 MG TAB (AbiLIFY) PO SCH ×2 (08:56→21:26)
[2020-01-31] MEDS: metFORMIN XR 500MG TAB *GLUCOPHAGE XR PO SCH ×2 (08:57→17:58)
[2020-01-31] MEDS: SENOKOT S TAB PO SCH (08:58)
[2020-01-31 17:42] VITALS: BP 144/83
[2020-01-31] MEDS: zolPIDEM TARTRATE 5 MG TAB PO PRN (21:26)
[2020-01-31] MEDS: diphenhydrAMINE 50MG CAP PO PRN (21:26)
[2020-02-01] MEDS: LEVOTHYROXINE 25MCG TABLET (0.025MG) PO SCH (06:21)
[2020-02-01 06:29] VITALS: BP 136/89
[2020-02-01] MEDS: ARIPiprazole 15 MG TAB (AbiLIFY) PO SCH ×2 (08:49→20:28)
[2020-02-01] MEDS: PROPRANOLOL 10 MG TAB PO SCH ×3 (08:49→20:27)
[2020-02-01] MEDS: ATORVASTATIN 20 MG TAB PO SCH (08:49)
[2020-02-01] MEDS: MODAFINIL 100 MG TABLET PO SCH (08:49)
[2020-02-01] MEDS: metFORMIN XR 500MG TAB *GLUCOPHAGE XR PO SCH ×2 (08:50→17:08)
[2020-02-01] MEDS: SENOKOT S TAB PO SCH (08:50)
[2020-02-01] MEDS: cloZAPine 25 MG TAB (S0136) PO SCH ×2 (08:50→20:28)
[2020-02-01] MEDS: LOSARTAN 25 MG TAB PO SCH (08:50)
--- NOTE | 2020-02-01 09:49 | MHIPNPDOC ---
[facility] Progress Note Progress Note DATE OF SERVICE: 02/01/20 Subjective HPI: Rachid presents today for a follow up. He denies any constipation, stomach issues, or fever. MEDICATIONS: He continues to take his prescribed medications regularly, including Clozaril. SOCIAL HISTORY - LIVING SITUATION: Patti currently living at [place], reports having previous history of going to [facility] but reports he doesn't want to return as it is too chaotic. Objective Appearance: Appears to be stated age. Well nourished. Hygiene fair. Well groomed. Affect: Flattened affect. Thought Form: Linear and goal directed. Thought Content: No thoughts of self harm. No evidence of suicidal ideation. No evidence of delusions. No evidence of aggressive or homicidal ideation. Judgement: Baseline. Insight: Baseline. Assessment F20.9 Schizophrenia, unspecified Plan Plan is to continue Clozapine and Abilify along with other medications. Will see about triaging back to outpatient as it appears that his improvement would likely preclude a successful hearing. Will attempt to work with Hand Router Operator to see if theres an amenable solution. Vital Signs Vital Signs Date Time Temp Pulse Resp B/P (MAP) Pulse Ox O2 Delivery O2 Flow Rate FiO2 02/01/20 08:49 90 132/73 02/01/20 06:29 97.3 16 97 Room Air Laboratory Data 24H Labs Laboratory Tests 2 01/31/20 18:00: Bedside Glucose (Misc Panel) 151H 02/01/20 06:27: Bedside Glucose (Misc Panel) 109H Current Medications Current Medications Medications (Trade) Dose Ordered Sig/Vaishnavi Route PRN Reason Start Time Stop Time Status Last Admin Dose Admin Acetaminophen (Tylenol Tab) 650 mg Q6HP PRN PO HEADACHE or DISCOMFORT 12/26/19 18:30 Cancel Al Hydrox/Mg Hydrox/Simethicone (Mylanta) 30 ml Q4HP PRN PO HEARTBURN/INDIGESTION 12/26/19 18:30 Aripiprazole (AbiLIFY) 15 mg BID PO 12/26/19 21:00 02/01/20 08:49 Atorvastatin Calcium (Lipitor) 20 mg DAILY PO 12/27/19 09:00 02/01/20 08:49 Clozapine (Clozaril) 12.5 mg QHS PO 01/12/20 21:00 01/13/20 17:10 DC 01/12/20 21:57 Clozapine (Clozaril) 25 mg DAILY PO 01/21/20 09:00 02/01/20 08:50 Clozapine (Clozaril) 25 mg QHS PO 01/13/20 21:00 01/18/20 11:26 DC 01/17/20 20:57 Clozapine (Clozaril) 50 mg QHS PO 01/18/20 21:00 01/31/20 21:26 Diphenhydramine HCl (Benadryl) 50 mg TID PRN PO ANXIETY/AGITATION 12/26/19 20:00 01/31/20 21:26 Haloperidol (Haldol) 20 mg QHS PO 12/26/19 21:00 01/31/20 21:25 Home Med (Med Rec Complete!) ASDIRECTED XX 12/26/19 19:00 12/26/19 18:55 DC Ibuprofen (Advil) 600 mg TID PRN PO PAIN 12/26/19 20:00 01/31/20 08:54 Levothyroxine Sodium (Synthroid) 25 mcg DAILY@0600 PO 12/27/19 06:00 02/01/20 06:21 Losartan Potassium (Cozaar) 25 mg DAILY PO 12/27/19 09:00 02/01/20 08:50 Magnesium Hydroxide (Milk Of Magnesia) 30 ml DAILYPRN PRN PO CONSTIPATION 12/26/19 18:30 Metformin HCl (Glucophage Xr) 500 mg BID@0800,1800 PO 12/26/19 18:00 02/01/20 08:50 Miscellaneous (Unresolved Clarification Entry) SEE LABEL COMMENTS DAILY XX 01/15/20 09:00 01/15/20 14:36 DC Miscellaneous (Unresolved Clarification Entry) SEE LABEL COMMENTS DAILY XX 01/24/20 09:00 01/25/20 15:47 DC Miscellaneous (Unresolved Clarification Entry) SEE LABEL COMMENTS DAILY XX 01/29/20 09:00 02/01/20 08:52 DC Modafinil (Provigil) 50 mg DAILY PO 01/21/20 09:00 01/26/20 11:05 DC 01/26/20 08:32 Modafinil (Provigil) 100 mg DAILY PO 01/27/20 09:00 02/01/20 08:49 Non-Formulary Medication ( See Comment Field Below ) SEE COMMENTS SECTION 1T@10 XX 01/07/20 10:00 01/05/20 12:33 DC Non-Formulary Medication ( See Comment Field Below ) SEE COMMENTS SECTION DAILY@1000 XX 01/09/20 10:00 01/10/20 09:59 DC Non-Formulary Medication ( See Comment Field Below ) SEE LABEL COMMENTS DAILY XX 01/05/20 09:00 01/05/20 13:42 DC Non-Formulary Medication ( See Comment Field Below ) SEE LABEL COMMENTS DAILY XX 01/06/20 09:00 01/07/20 11:04 DC Propranolol HCl (Inderal) 10 mg TID PO 12/26/19 21:00 02/01/20 08:49 Senna/Docusate Sodium (Senokot S) 1 tab DAILY PO 01/19/20 09:00 02/01/20 08:50 Trazodone HCl (Desyrel) 50 mg QHSP PRN PO INSOMNIA 12/26/19 18:30 Cancel Zolpidem Tartrate (Ambien) 10 mg QHSP PRN PO Insomnia 12/26/19 20:00 01/02/20 19:59 DC 01/01/20 20:51 Zolpidem Tartrate (Ambien) 10 mg QHSP PRN PO INSOMNIA 01/22/20 21:15 01/31/20 21:26 Zolpidem Tartrate (Ambien) 10 mg QHSP PRN PO Insomnia 01/08/20 23:00 01/22/20 13:49 DC 01/20/20 21:13 Allergies Coded Allergies: No Known Allergies (Unverified , 12/26/19) MO KEYES DO Feb 01, 2020 09:49
[2020-02-01 16:01] VITALS: BP 127/80
[2020-02-01] MEDS: zolPIDEM TARTRATE 5 MG TAB PO PRN (20:27)
[2020-02-02] MEDS: LEVOTHYROXINE 25MCG TABLET (0.025MG) PO SCH (06:12)
[2020-02-02 06:31] VITALS: BP 108/78
[2020-02-02] MEDS: SENOKOT S TAB PO SCH (08:47)
[2020-02-02] MEDS: metFORMIN XR 500MG TAB *GLUCOPHAGE XR PO SCH ×2 (08:47→17:13)
[2020-02-02] MEDS: LOSARTAN 25 MG TAB PO SCH (08:47)
[2020-02-02] MEDS: MODAFINIL 100 MG TABLET PO SCH (08:47)
[2020-02-02] MEDS: ATORVASTATIN 20 MG TAB PO SCH (08:47)
[2020-02-02] MEDS: ARIPiprazole 15 MG TAB (AbiLIFY) PO SCH ×2 (08:47→20:10)
[2020-02-02] MEDS: PROPRANOLOL 10 MG TAB PO SCH ×3 (08:47→20:11)
[2020-02-02] MEDS: cloZAPine 25 MG TAB (S0136) PO SCH ×2 (08:47→20:10)
--- NOTE | 2020-02-02 10:17 | MHIPNPDOC ---
[facility] Progress Note Progress Note DATE OF SERVICE: 02/02/20 Subjective HPI: Rachid presents today for concerns for being admitted to the inpatient mental health unit. He notes that he is interested in diet, lose weight, and exercise. [facility] made a lot of progress with Clozapine. He reports that he wants his medication to be more simplified. He denies any problems with constipation and any fevers. He states that he wants assisted living. He denies any suicidal or homicidal thoughts. He is also taking Modafinil and Clozaril. He reports that he is otherwise doing well. He is still not interested in going to [facility]. Objective Appearance: Hygiene improved. Appears to be stated age. Well nourished. Well groomed. Affect: Appropriate to context. More reactive. Less thought blocking present. Full range. Cognition: Grossly intact. Alert, Attentive, and Oriented to person, place, time. Thought Form: More linear and logical. Judgement: Improved. Intact as evidenced by decision making in the recent past. Insight: Improved. Good insight into symptoms and treatment options. Assessment F20.9 Schizophrenia, unspecified Plan Continue clozapine 25/50 and Modafinil 100 milligrams daily. Well get CBC with ANC and EKG to monitor if he is improving. Well attempt to meet without patient provider and case specialist as the patient is unlikely to be accepted by [facility] given his improvement. Vital Signs Vital Signs Date Time Temp Pulse Resp B/P (MAP) Pulse Ox O2 Delivery O2 Flow Rate FiO2 02/02/20 08:47 98 02/02/20 08:47 121/81 02/02/20 06:31 96.8 18 Room Air 02/01/20 06:29 97 Laboratory Data 24H Labs Laboratory Tests 2 02/01/20 17:07: Bedside Glucose (Misc Panel) 120H 02/02/20 06:17: Bedside Glucose (Misc Panel) 132H Current Medications Current Medications Medications (Trade) Dose Ordered Sig/Vaishnavi Route PRN Reason Start Time Stop Time Status Last Admin Dose Admin Acetaminophen (Tylenol Tab) 650 mg Q6HP PRN PO HEADACHE or DISCOMFORT 12/26/19 18:30 Cancel Al Hydrox/Mg Hydrox/Simethicone (Mylanta) 30 ml Q4HP PRN PO HEARTBURN/INDIGESTION 12/26/19 18:30 Aripiprazole (AbiLIFY) 15 mg BID PO 12/26/19 21:00 02/02/20 08:47 Atorvastatin Calcium (Lipitor) 20 mg DAILY PO 12/27/19 09:00 02/02/20 08:47 Clozapine (Clozaril) 12.5 mg QHS PO 01/12/20 21:00 01/13/20 17:10 DC 01/12/20 21:57 Clozapine (Clozaril) 25 mg DAILY PO 01/21/20 09:00 02/02/20 08:47 Clozapine (Clozaril) 25 mg QHS PO 01/13/20 21:00 01/18/20 11:26 DC 01/17/20 20:57 Clozapine (Clozaril) 50 mg QHS PO 01/18/20 21:00 02/01/20 20:28 Diphenhydramine HCl (Benadryl) 50 mg TID PRN PO ANXIETY/AGITATION 12/26/19 20:00 01/31/20 21:26 Haloperidol (Haldol) 20 mg QHS PO 12/26/19 21:00 02/01/20 20:27 Home Med (Med Rec Complete!) ASDIRECTED XX 12/26/19 19:00 12/26/19 18:55 DC Ibuprofen (Advil) 600 mg TID PRN PO PAIN 12/26/19 20:00 01/31/20 08:54 Levothyroxine Sodium (Synthroid) 25 mcg DAILY@0600 PO 12/27/19 06:00 02/02/20 06:12 Losartan Potassium (Cozaar) 25 mg DAILY PO 12/27/19 09:00 02/02/20 08:47 Magnesium Hydroxide (Milk Of Magnesia) 30 ml DAILYPRN PRN PO CONSTIPATION 12/26/19 18:30 Metformin HCl (Glucophage Xr) 500 mg BID@0800,1800 PO 12/26/19 18:00 02/02/20 08:47 Miscellaneous (Unresolved Clarification Entry) SEE LABEL COMMENTS DAILY XX 01/15/20 09:00 01/15/20 14:36 DC Miscellaneous (Unresolved Clarification Entry) SEE LABEL COMMENTS DAILY XX 01/24/20 09:00 01/25/20 15:47 DC Miscellaneous (Unresolved Clarification Entry) SEE LABEL COMMENTS DAILY XX 01/29/20 09:00 02/01/20 08:52 DC Miscellaneous (Unresolved Clarification Entry) SEE LABEL COMMENTS DAILY XX 02/02/20 09:00 Modafinil (Provigil) 50 mg DAILY PO 01/21/20 09:00 01/26/20 11:05 DC 01/26/20 08:32 Modafinil (Provigil) 100 mg DAILY PO 01/27/20 09:00 02/02/20 08:47 Non-Formulary Medication ( See Comment Field Below ) SEE COMMENTS SECTION 1T@10 XX 01/07/20 10:00 01/05/20 12:33 DC Non-Formulary Medication ( See Comment Field Below ) SEE COMMENTS SECTION DAILY@1000 XX 01/09/20 10:00 01/10/20 09:59 DC Non-Formulary Medication ( See Comment Field Below ) SEE LABEL COMMENTS DAILY XX 01/05/20 09:00 01/05/20 13:42 DC Non-Formulary Medication ( See Comment Field Below ) SEE LABEL COMMENTS DAILY XX 01/06/20 09:00 01/07/20 11:04 DC Propranolol HCl (Inderal) 10 mg TID PO 12/26/19 21:00 02/02/20 08:47 Senna/Docusate Sodium (Senokot S) 1 tab DAILY PO 01/19/20 09:00 02/02/20 08:47 Trazodone HCl (Desyrel) 50 mg QHSP PRN PO INSOMNIA 12/26/19 18:30 Cancel Zolpidem Tartrate (Ambien) 10 mg QHSP PRN PO Insomnia 12/26/19 20:00 01/02/20 19:59 DC 01/01/20 20:51 Zolpidem Tartrate (Ambien) 10 mg QHSP PRN PO INSOMNIA 01/22/20 21:15 02/01/20 20:27 Zolpidem Tartrate (Ambien) 10 mg QHSP PRN PO Insomnia 01/08/20 23:00 01/22/20 13:49 DC 01/20/20 21:13 Allergies Coded Allergies: No Known Allergies (Unverified , 12/26/19) MO KEYES DO Feb 02, 2020 10:17
[2020-02-02 16:06] VITALS: BP 143/79
[2020-02-02] MEDS: zolPIDEM TARTRATE 5 MG TAB PO PRN (20:10)
[2020-02-03] MEDS: LEVOTHYROXINE 25MCG TABLET (0.025MG) PO SCH (06:13)
[2020-02-03 06:29] VITALS: BP 142/78
[2020-02-03 07:43] LABS: BASO % 0.3 % (0.0-1.0); EOS # 0.1 10^3/uL (0.0-0.5); EOS % 1.5 % (0.0-3.0); HEMATOCRIT 44.1 % (42.0-52.0); HEMOGLOBIN 14.8 g/dl (13.5-17.5); LYMPH # 2.6 10^3/uL (1.5-5.0); LYMPH % 40.3 % (24.0-44.0); MEAN CORPUSCULAR HEMOGLOBIN 28.8 pg (27.0-33.0); MEAN CORPUSCULAR HGB CONC 33.6 g/dl (32.0-36.5); MEAN CORPUSCULAR VOLUME 85.8 fl (80.0-96.0); MONO # 0.7 10^3/uL (0.0-0.8); MONO % 10.2 % (0.0-5.0); NEUTROPHILS # 3.1 10^3/uL (1.5-8.5); NEUTROPHILS % 47.4 % (36.0-66.0); PLATELET COUNT, AUTOMATED 187 10^3/uL (150-450); RED BLOOD COUNT 5.14 10^6/uL (4.30-6.10); WHITE BLOOD COUNT 6.5 10^3/uL (4.0-10.0)
[2020-02-03] MEDS: SENOKOT S TAB PO SCH (08:08)
[2020-02-03] MEDS: metFORMIN XR 500MG TAB *GLUCOPHAGE XR PO SCH (08:08)
[2020-02-03 08:09] VITALS: BP 142/70
[2020-02-03] MEDS: MODAFINIL 100 MG TABLET PO SCH (08:09)
[2020-02-03] MEDS: ARIPiprazole 15 MG TAB (AbiLIFY) PO SCH (08:09)
[2020-02-03] MEDS: cloZAPine 25 MG TAB (S0136) PO SCH (08:09)
[2020-02-03] MEDS: LOSARTAN 25 MG TAB PO SCH (08:09)
[2020-02-03] MEDS: IBUPROFEN 600MG TAB PO PRN (08:09)
[2020-02-03] MEDS: ATORVASTATIN 20 MG TAB PO SCH (08:10)
[2020-02-03] MEDS: PROPRANOLOL 10 MG TAB PO SCH (08:10)
--- NOTE | 2020-02-03 09:06 | MHIPNPDOC ---
[facility] Progress Note Progress Note DATE OF SERVICE: 02/03/20 HISTORY: . VITAL SIGNS: See below. NEW TEST RESULTS: . CURRENT MEDICATIONS: See below. MENTAL STATUS EXAMINATION: Patient is a -year old male, who is . Speech: Is . Language skills are . Thought processes including: . Thought content: . Abstract reasoning, and computation: . Description of associations: . Description of abnormal or psychotic thoughts: . Judgment: . Insight: [very limited, good, fair. poor]. Orientation: . Recent and remote memory: . Attention span and concentration: . Language: . Fund of knowledge: . Mood: . Affect: . DIAGNOSES: 1. . 2. . 3. . ASSESSMENT: MANAGEMENT PLAN: . TIME SPENT: minutes. Vital Signs Vital Signs Date Time Temp Pulse Resp B/P (MAP) Pulse Ox O2 Delivery O2 Flow Rate FiO2 02/03/20 08:10 89 02/03/20 08:09 142/70 02/03/20 06:29 96.9 18 02/02/20 06:31 Room Air 02/01/20 06:29 97 Laboratory Data 24H Labs Laboratory Tests 2 02/02/20 17:12: Bedside Glucose (Misc Panel) 126H 02/03/20 06:07: Bedside Glucose (Misc Panel) 123H 02/03/20 07:22: Immature Granulocyte % (Auto) 0.3, Neutrophils (%) (Auto) 47.4, Lymphocytes (%) (Auto) 40.3, Monocytes (%) (Auto) 10.2H, Eosinophils (%) (Auto) 1.5, Basophils (%) (Auto) 0.3, Neutrophils # (Auto) 3.1, Lymphocytes # (Auto) 2.6, Monocytes # (Auto) 0.7, Eosinophils # (Auto) 0.1, Basophils # (Auto) 0.0, Nucleated Red Blood Cells % (auto) 0.0 CBC/BMP Laboratory Tests 02/03/20 07:22 Current Medications Current Medications Medications (Trade) Dose Ordered Sig/Vaishnavi Route PRN Reason Start Time Stop Time Status Last Admin Dose Admin Acetaminophen (Tylenol Tab) 650 mg Q6HP PRN PO HEADACHE or DISCOMFORT 12/26/19 18:30 Cancel Al Hydrox/Mg Hydrox/Simethicone (Mylanta) 30 ml Q4HP PRN PO HEARTBURN/INDIGESTION 12/26/19 18:30 Aripiprazole (AbiLIFY) 15 mg BID PO 12/26/19 21:00 02/03/20 08:09 Atorvastatin Calcium (Lipitor) 20 mg DAILY PO 12/27/19 09:00 02/03/20 08:10 Clozapine (Clozaril) 12.5 mg QHS PO 01/12/20 21:00 01/13/20 17:10 DC 01/12/20 21:57 Clozapine (Clozaril) 25 mg DAILY PO 01/21/20 09:00 02/03/20 08:09 Clozapine (Clozaril) 25 mg QHS PO 01/13/20 21:00 01/18/20 11:26 DC 01/17/20 20:57 Clozapine (Clozaril) 50 mg QHS PO 01/18/20 21:00 02/02/20 20:10 Diphenhydramine HCl (Benadryl) 50 mg TID PRN PO ANXIETY/AGITATION 12/26/19 20:00 01/31/20 21:26 Haloperidol (Haldol) 20 mg QHS PO 12/26/19 21:00 02/02/20 20:10 Home Med (Med Rec Complete!) ASDIRECTED XX 12/26/19 19:00 12/26/19 18:55 DC Ibuprofen (Advil) 600 mg TID PRN PO PAIN 12/26/19 20:00 02/03/20 08:09 Levothyroxine Sodium (Synthroid) 25 mcg DAILY@0600 PO 12/27/19 06:00 02/03/20 06:13 Losartan Potassium (Cozaar) 25 mg DAILY PO 12/27/19 09:00 02/03/20 08:09 Magnesium Hydroxide (Milk Of Magnesia) 30 ml DAILYPRN PRN PO CONSTIPATION 12/26/19 18:30 Metformin HCl (Glucophage Xr) 500 mg BID@0800,1800 PO 12/26/19 18:00 02/03/20 08:08 Miscellaneous (Unresolved Clarification Entry) SEE LABEL COMMENTS DAILY XX 01/15/20 09:00 01/15/20 14:36 DC Miscellaneous (Unresolved Clarification Entry) SEE LABEL COMMENTS DAILY XX 01/24/20 09:00 01/25/20 15:47 DC Miscellaneous (Unresolved Clarification Entry) SEE LABEL COMMENTS DAILY XX 01/29/20 09:00 02/01/20 08:52 DC Miscellaneous (Unresolved Clarification Entry) SEE LABEL COMMENTS DAILY XX 02/02/20 09:00 02/02/20 12:48 DC Modafinil (Provigil) 50 mg DAILY PO 01/21/20 09:00 01/26/20 11:05 DC 01/26/20 08:32 Modafinil (Provigil) 100 mg DAILY PO 01/27/20 09:00 02/03/20 08:09 Non-Formulary Medication ( See Comment Field Below ) SEE COMMENTS SECTION 1T@10 XX 01/07/20 10:00 01/05/20 12:33 DC Non-Formulary Medication ( See Comment Field Below ) SEE COMMENTS SECTION DAILY@1000 XX 01/09/20 10:00 01/10/20 09:59 DC Non-Formulary Medication ( See Comment Field Below ) SEE LABEL COMMENTS DAILY XX 01/05/20 09:00 01/05/20 13:42 DC Non-Formulary Medication ( See Comment Field Below ) SEE LABEL COMMENTS DAILY XX 01/06/20 09:00 01/07/20 11:04 DC Propranolol HCl (Inderal) 10 mg TID PO 12/26/19 21:00 02/03/20 08:10 Senna/Docusate Sodium (Senokot S) 1 tab DAILY PO 01/19/20 09:00 02/03/20 08:08 Trazodone HCl (Desyrel) 50 mg QHSP PRN PO INSOMNIA 12/26/19 18:30 Cancel Zolpidem Tartrate (Ambien) 10 mg QHSP PRN PO Insomnia 12/26/19 20:00 01/02/20 19:59 DC 01/01/20 20:51 Zolpidem Tartrate (Ambien) 10 mg QHSP PRN PO INSOMNIA 01/22/20 21:15 02/02/20 20:10 Zolpidem Tartrate (Ambien) 10 mg QHSP PRN PO Insomnia 01/08/20 23:00 01/22/20 13:49 DC 01/20/20 21:13 Allergies Coded Allergies: No Known Allergies (Unverified , 12/26/19) MO KEYES DO Feb 03, 2020:06
[2020-02-03] MEDS ORDERED: CLOZ25TA3 PO ×5 (10:41→13:25)
[2020-02-03] MEDS ORDERED: MODA100T13 PO (10:41)
[2020-02-03] MEDS ORDERED: other (10:45)
[2020-02-03] MEDS ORDERED: SENN-52 PO ×2 (11:29→12:32)
[2020-02-03] MEDS ORDERED: AMBI10TA PO (12:32)
[2020-02-04] MEDS ORDERED: MODA100T13 PO (10:51)
--- NOTE | 2020-02-05 11:29 | MHDSPDOC ---
[facility] Discharge Summary Discharge Summary DATE OF ADMISSION: Dec 26, 2019 at 18:26 DATE OF DISCHARGE: Feb 03, 2020 at 14:30 DISCHARGE DIAGNOSES: F20.9 Schizophrenia, unspecified CONSULTANTS INVOLVED:[ None (basic hospitalist screening)] REASON FOR ADMISSION & TREATMENT AND PROGRESS ON THE UNIT : admitted to the inpatient mental healthy unit after notably being psychotic and his baseline unable to be determined at [facility]. He was transferred to our unit, where he was notably psychotic and had difficulties with responding to unseen others and even holding small sessions of court with a completely invisible jury. He did well as cbcs, routinely done over several weeks, were all within normal. His EKGs indicated no significant distortion of OTC, and he generally tolerates the medications well. Hes put on Stephanie prophylaxis of senna and did not have any problems with constipation. He generally began to take care of himself better, wears better clothes, and his hygiene improved greatly since the start of Clozapine. There was a meeting between his case management director and applications manager before the discharge, of which they informed him that they ultimately wanted to him in a group house, and he was amenable to this. And they discussed his difficulties with eating and the need to follow-up. MEDICATIONS: He initially was resumed on Abilify and other medications, such as Zolpidem, and remained at baseline level of psychosis. He was started on Clozapine initially 12.5 mg nightly, increased to a total of 25/50 QAM/QHS, respectively, of which he made huge progress. He became more organized, improved hygiene, stopped responding to internal stimulation, and reported that his voices has had abated and were nearly gone. Continue with Clozapine and start on Modafinil for sleepiness during the day, increase to 100 mg as he did quite well on this, was notably more engaged/wakeful, and even going to some groups. He was sent standing blood orders to be done for his Clozapine and intentions for him to continue as an outpatient. DISCHARGE ASSESSMENT[improved] Legal status considerations: The patient at the time of discharge did not meet criteria for involuntary admission/extension due to having a improved mental status exam, improved insight into the situation, They are engaged in the discharge process, as well as being friendly and amenable in behavioral control and havent been engaging in any observed concerning behavior or ideation recently. They decline voluntary extension/admission at this time and must be discharged in good [place], as Im unable to make a case for holding the patient against their will. They may have historical risk factors of admissions and other interactions with psychiatry however, those are not modifiable from a clinical perspective. The patient will need to be discharged in good k[place]. MENTAL STATUS EXAMINATION ON DISCHARGE: Appearance: Fair hygiene. Affect: Somewhat flat, but much more improved and more euthymic. Hes able to smile now. Speech: Normal rate. Normal volume. He denies any auditory and visual hallucinations at this time. He does not appear to be responding to interal stimuli. Spontaneous and Fluid. Cognition: Alert, Attentive, and Oriented to person, place, time. Grossly inta ct. Thought Form: Linear and goal directed. Generally logical. Thought Content: No evidence of suicidal ideation. No evidence of aggressive or homicidal ideation. No evidence of delusions. No thoughts of self harm. Judgement: Intact as evidenced by decision making in the recent past. Insight: Good insight into symptoms and treatment options. PLAN/FOLLOWUP ARRANGEMENTS: Follow up appointments made (PCP and MH in 5 days of D/C date) and safety plan completed. Safety Planning aspects completed prior to discharge [Medication supplies limited to 7 days with 4 refills to prevent accumulation to OD] Housing/sem managerscientific affairs manager and discussion [RN reviewed crisis hotline information and other aspects to empower patient to access care in interim before next appointment.] The amount of time spent in the coordination of care for this patient was approximately 30 minutes. Vital Signs/I&Os Vital Signs Date Time Temp Pulse Resp B/P (MAP) Pulse Ox O2 Delivery O2 Flow Rate FiO2 02/03/20 08:10 89 02/03/20 08:09 142/70 02/03/20 06:29 96.9 18 02/02/20 06:31 Room Air 02/01/20 06:29 97 Medications Scheduled Aripiprazole (Aripiprazole) 15 Mg Tablet, 15 MG PO BID, (Reported) Atorvastatin Calcium (Atorvastatin Calcium) 20 Mg Tablet, 20 MG PO DAILY, (Reported) Clozapine (Clozapine) 25 Mg Tablet, 1 TAB PO BID for mood for 7 Days, #21 take 1 tab daily and 2 at night Haloperidol (Haloperidol) 20 Mg Tablet, 20 MG PO QHS, (Reported) Levothyroxine Sodium (Levothyroxine Sodium) 25 Mcg Tablet, 25 MCG PO DAILY, (Reported) Losartan Potassium (Losartan Potassium) 25 Mg Tablet, 25 MG PO DAILY, (Reported) Metformin HCl (Metformin HCl ER) 500 Mg Tab.er.24h, 500 MG PO BID, (Reported) Modafinil (Modafinil) 100 Mg Tablet, 100 MG PO DAILY for wakeful for 30 Days, #30 Propranolol HCl (Propranolol HCl) 10 Mg Tablet, 10 MG PO TID, (Reported) Sennosides/Docusate Sodium (Senna Plus Tablet) 1 Each Tablet, 1 TAB PO DAILY for bowl for 30 Days, #30 Scheduled PRN Diphenhydramine HCl (Diphenhydramine HCl) 50 Mg Capsule, 50 MG PO TID PRN for ANXIETY/AGITATION, (Reported) Ibuprofen (Ibuprofen) 600 Mg Tablet, 1 MG PO TID PRN for PAIN, (Reported) Zolpidem Tartrate (Ambien) 10 Mg Tablet, 10 MG PO QHS PRN for sleep for 30 Days, #30 Miscellaneous Medications [other] , 1 for lab standing order for CBC with differential qweekly Allergies Coded Allergies: No Known Allergies (Unverified , 12/26/19) MO KEYES DO Feb 05, 2020 11:29
--- NOTE | 2020-02-07 10:39 | ECGEPIP ---
[facility] Test Date: 2020-02-02 Pat Name: DARIN HENDRICKSON Department: Room: [place] [address] Gender: Male Package Delivery Room Service Runner: DAMIAN : 1970 Requested By: MO KEYES Order Number: [id number] Reading MD: Kedar Handy Measurements Intervals [place] Rate: 65 P: 15 [place]: 159 QRS: 62 QRSD: 120 T: 48 QT: 373 QTc: 390 Interpretive Statements SINUS RHYTHM POSSIBLE RIGHT VENTRICULAR CONDUCTION DELAY Compared to prior tracings in the system, no significant changes Electronically Signed on 02-07-2020 10:38:36 EDT by Kedar Handy
== END 2020-02-03 14:30 | disposition home or self-care (01) | DRG 885 ==
LOC: M ED 15:35 → M ED INP 18:26 → M PSY 22:57
PROVIDERS: ADMIT Psychiatry & Neurology Addiction Medicine; ATTEND Psychiatry & Neurology Addiction Medicine
DX: F20.9 Schizophrenia, unspecified (principal); E11.9 Type 2 diabetes mellitus without complications; E03.9 Hypothyroidism, unspecified; E78.00 Pure hypercholesterolemia, unspecified; E66.9 Obesity, unspecified; R10.32 Left lower quadrant pain; K59.00 Constipation, unspecified; R31.9 Hematuria, unspecified; I10 Essential (primary) hypertension; Z79.84 Long term (current) use of oral hypoglycemic drugs; Z79.899 Other long term (current) drug therapy; Z68.36 Body mass index [BMI] 36.0-36.9, adult